=== PATIENT | female | born 1945 | race Caucasian/White ===

== ENCOUNTER 2020-02-19 11:20 | Outpatient (CLI) | payer MEDICARE | END 2020-02-19 11:21 | disposition critical access hospital (66) | LOC: EMS 11:20 | PROVIDERS: ATTEND Surgery | DX: R09.89 Other specified symptoms and signs involving the circulatory and respiratory systems (principal) | CPT/HCPCS: A0425; A0429 ==

== ENCOUNTER 2020-02-19 11:35 | Emergency (ER) | payer MEDICARE, OTHER ==
[2020-02-19] MEDS ORDERED: IPRATROPIUM/ALBUTEROL 3 ML NEB INH STA (12:25)
--- NOTE | 2020-02-19 12:27 | ED Physician Documentation ---
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 Currently without treatment. For the last 2 months she is had a productive cough with thick mucus and wheezing and shortness of breath. Today she had a mucous obstruction which her was able to release with tqzhe-cr-vtrdf resuscitation. She continues to be short of breath but not much to more over the baseline she has had over the last couple months. No calf pain, pedal edema or chest pain. No fevers. Review of Systems Constitutional: denies: Fever, Chills Eyes: denies: Loss of vision, Decreased vision Ears: denies: Loss of hearing, Ear pain Nose: denies: Rhinorrhea / runny nose, Congestion Throat: denies: Sore throat Cardiac: denies: Chest pain / pressure, Palpitations Respiratory: denies: Dyspnea, Cough PD PAST MEDICAL HISTORY - Present Medications Home Medications: Ambulatory Orders Medication Instructions Recorded Confirmed Albuterol Sulf [Ventolin Hfa 1 - 2 puffs INH Q4HR PRN #1 inhaler 02/19/20 Inhaler] Fluticasone/Salmeterol [Advair 1 each IH BID #3 blst.w.dev 02/19/20 100-50 Diskus] - Allergies Allergies/Adverse Reactions: Allergies Allergy/AdvReac Type Severity Reaction Status Date / Time peanut Allergy Anaphylaxis Verified 02/19/20 12:04 Penicillins Allergy Hives Verified 02/19/20 12:03 Tetanus Vaccines and Toxoid Allergy Rash Verified 02/19/20 12:04 PD ED PE NORMAL - Vitals Vital signs reviewed: Yes - General General: Alert and oriented X 3, No acute distress - HEENT HEENT: PERRL, EOMI - Neck Neck: Supple, no meningeal sign - Cardiac Cardiac: Other (Rapid without murmur, regular) - Respiratory Respiratory: Other (Mildly labored breathing and stridor at rest. Lungs are diminished throughout especially the right) - Abdomen Abdomen: Non tender - Back Back: No CVA TTP, No spinal TTP - Derm Derm: Normal color, Warm and dry, No rash - Extremities Extremities: No edema, No calf tenderness / cord - Neuro Neuro: Alert and oriented X 3, Normal speech Results - Vitals Vitals: Vital Signs - 24 hr 02/19/20 02/19/20 02/19/20 11:49 12:14 12:39 Temperature 36.8 C Heart Rate 91 92 86 Respiratory 17 19 12 Rate Blood Pressure 159/74 H 156/94 H O2 Saturation 100 100 Oxygen O2 Source Room air - EKG (time done) 1222 Rate: Rate (enter#) (119) Rhythm: Sinus tachycardia (w pacs) Barrett: Normal Intervals: Normal [place] QRS: Normal Ischemia: Non specific changes Computer interpretation: Agree with computer - Labs Labs: Laboratory Tests 02/19/20 02/19/20 02/19/20 12:25 12:25 12:25 WBC 5.4 RBC 4.92 Hgb 13.7 Hct 41.8 MCV 85.0 MCH 27.8 MCHC 32.8 RDW 13.5 Plt Count 175 MPV 10.0 Neut # (Auto) 3.8 Lymph # (Auto) 1.2 L Eddy # (Auto) 0.3 Eos # (Auto) 0.0 Baso # (Auto) 0.0 Absolute Nucleated RBC 0.00 Nucleated RBC % 0.0 Sodium 139 Potassium 3.9 Chloride 101 Carbon Dioxide 28 Anion Gap 10.0 BUN 12 Creatinine 0.6 Estimated GFR (MDRD) 98 Glucose 143 H Calcium 9.2 Total Bilirubin 0.9 AST 13 ALT 10 Alkaline Phosphatase 61 Troponin I High Sens 7.1 Total Protein 6.2 L Albumin 3.8 Globulin 2.4 Albumin/Globulin Ratio 1.6 Lipase 26 - Rads (name of study) 1v cxr Radiology: EMP read contemporaneously (NAD) PD MEDICAL DECISION MAKING - ED course ED course: 74-year-old woman with chronic lung disease presents after an exacerbation of same, after a DuoNeb she was feeling and looking much better, the tachycardia resolved. Departure - Departure Disposition: 01 Home, Self Care Clinical Impression: Mucus plugging of bronchi Condition: Good Record reviewed to determine appropriate education?: Yes Instructions: ED Reactive Airway Disease Follow-Up: River Moore MD [Physician No Access] - [facility] [Provider Group] [facility] [Provider Group] Prescriptions: Albuterol Sulf [Ventolin Hfa Inhaler] 1 - 2 puffs INH Q4HR PRN #1 inhaler PRN Reason: Shortness Of Air/Wheezing Fluticasone/Salmeterol [Advair 100-50 Diskus] 1 each IH BID #3 blst.w.dev Comments: On this form I put the numbers of a few doctors offices [place], Dr. 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 Return for new or worsening symptoms.
--- NOTE | 2020-02-19 12:34 | XRAY Report ---
PROCEDURE: Chest 1 View X-Ray INDICATIONS: Chest pain TECHNIQUE: One view of the chest was acquired. COMPARISON: None FINDINGS: Surgical changes and devices: None. Lungs and pleura: No pleural effusions or pneumothorax. Lungs are clear. Mediastinum: Mediastinal contours appear normal. Heart size is normal. Bones and chest wall: No suspicious bony lesions. Overlying soft tissues appear unremarkable. IMPRESSION: No acute cardiopulmonary disease process. Reviewed by: Sushma Castillo MD, PhD on 02/19/2020 12:33 PM PDT Approved by: Sushma Castillo MD, PhD on 02/19/2020 12:33 PM PDT Station ID: [id number]
[2020-02-19 12:40] LABS: BASOPHILS % (AUTO) 0.7 %; EOSINOPHILS % (AUTO) 0.7 %; HGB - HEMOGLOBIN 13.7 g/dL (12.0-16.0); LYMPHOCYTES # (AUTO) 1.2 10^3/uL (1.5-3.5); LYMPHOCYTES % (AUTO) 22.4 %; MEAN CORPUSCULAR HEMOGLOBIN 27.8 pg (27.0-31.0); MEAN CORPUSCULAR HGB CONC 32.8 g/dL (32.0-36.0); MONOCYTES # (AUTO) 0.3 10^3/uL (0.0-1.0); NEUTROPHILS # (AUTO) 3.8 10^3/uL (1.5-6.6); PLT - PLATELET COUNT 175 10^3/uL (130-450); RED BLOOD COUNT 4.92 10^6/uL (4.20-5.40); RED CELL DISTRIBUTION WIDTH 13.5 % (12.0-15.0); WHITE BLOOD COUNT 5.4 x10^3/uL (4.8-10.8)
[2020-02-19 12:56] LABS: ALBUMIN 3.8 g/dL (3.2-5.5); ALBUMIN/GLOBULIN RATIO 1.6 (1.0-2.2); BILIRUBIN,TOTAL 0.9 mg/dL (0.2-1.0); CALCIUM 9.2 mg/dL (8.5-10.3); CREATININE 0.6 mg/dL (0.4-1.0); TOTAL PROTEIN 6.2 g/dL (6.7-8.2)
[2020-02-19 13:17] VITALS: BP 143/51
== END 2020-02-19 13:23 | disposition home or self-care (01) ==
LOC: EDUNIT# → ED 11:35
DX: T17.590A Other foreign object in bronchus causing asphyxiation, initial encounter (principal); X58.XXXA Exposure to other specified factors, initial encounter; J44.1 Chronic obstructive pulmonary disease with (acute) exacerbation; I49.1 Atrial premature depolarization
CPT/HCPCS: 36415; 71045; 80053; 83690; 84484; 85025; 93005; 94664; 99284

== ENCOUNTER 2020-08-19 05:47 | Outpatient (CLI) | payer MEDICARE, MEDICAID | END 2020-08-19 05:48 | disposition critical access hospital (66) | LOC: EMS 05:47 | PROVIDERS: ATTEND Surgery | DX: R06.00 Dyspnea, unspecified (principal); R05 Cough | CPT/HCPCS: A0425; A0427 ==

== ENCOUNTER 2020-08-19 06:20 | Inpatient (IN) | payer MEDICARE, MEDICAID ==
[2020-08-19] MEDS ORDERED: ASPIRIN CHEW 81 MG TABLET PO STA (06:36)
--- NOTE | 2020-08-19 06:39 | ED Physician Documentation ---
History of Present Illness - Stated complaint Stated Complaint: SOA/ COUGH - History obtained from History obtained from: Patient, EMS - Additonal information Additional information: Patient is brought to the emergency department by EMS after waking up and feeling as though she could not breathe. She was having a coughing fit at that time she states. Patient states that she gets mucous plugs from time to time and this felt the same way. Patient states that when she was able to cough the plug up she felt better but then began to feel bad again. By this time the medics had picked her up. Medics state that when they got there, patient's oxygen saturation was 51% on room air. They immediately put her on 100% O2 and after she had a hard coughing fit and coughed up the phlegm, her sats were upper 90s to 100%. Patient states that just upon arrival in the emergency department, she coughed again and brought up what she feels is the rest of the material that was in her airways. Patient states she has a history of asthma, but has also been told by her pulmonology specialist that she has an autoimmune etiology underlying. Patient uses inhalers, but is not on any other medications. She denies diabetes, hypertension, or any cardiac issues. The patient does note that she has been having some leg swelling for the last couple of weeks. It seems to be a little worse today. No fevers or chills. No sick contacts. Prior to the episode this morning, the patient has not had any feeling of being ill. No other complaints at this time. Review of Systems Ten Systems: 10 systems reviewed and negative Constitutional: reports: Reviewed and negative Eyes: reports: Reviewed and negative Ears: reports: Reviewed and negative Nose: reports: Reviewed and negative Throat: reports: Reviewed and negative Cardiac: reports: Reviewed and negative Respiratory: reports: Dyspnea, Cough, Hemoptysis (mild blood-tinged material this morning.) GI: reports: Reviewed and negative : reports: Reviewed and negative Skin: reports: Reviewed and negative Musculoskeletal: reports: Reviewed and negative Neurologic: reports: Reviewed and negative Psychiatric: reports: Reviewed and negative Endocrine: reports: Reviewed and negative Immunocompromised: reports: Reviewed and negative PD PAST MEDICAL HISTORY - Past Medical History Respiratory: Shortness of breath, Other - Past Surgical History Past Surgical History: No - Present Medications Home Medications: Ambulatory Orders Medication Instructions Recorded Confirmed Albuterol Sulf [Ventolin Hfa 1 - 2 puffs INH Q4HR PRN #1 inhaler 02/19/20 08/19/20 Inhaler] Fluticasone/Salmeterol [Advair 1 each IH BID #3 blst.w.dev 02/19/20 08/19/20 100-50 Diskus] - Allergies Allergies/Adverse Reactions: Allergies Allergy/AdvReac Type Severity Reaction Status Date / Time peanut Allergy Anaphylaxis Verified 08/19/20 06:46 Penicillins Allergy Hives Verified 08/19/20 06:46 Tetanus Vaccines and Toxoid Allergy Rash Verified 08/19/20 06:46 - Social History Does the pt smoke?: No Smoking Status: Never smoker Does the pt drink ETOH?: No Does the pt have substance abuse?: No - Immunizations Immunizations are current?: No - POLST Patient has POLST: No PD ED PE NORMAL - Vitals Vital signs reviewed: Yes - General General: Alert and oriented X 3, No acute distress - HEENT HEENT: Atraumatic, PERRL, EOMI, Moist mucous membranes - Neck Neck: Supple, no meningeal sign - Cardiac Cardiac: RRR, No murmur, Strong equal pulses - Respiratory Respiratory: Other (Mildly labored respirations. Intermittent coughing fit. L ungs are clear to auscultation bilaterally with the exception of some mild crackles in the bases. Patient observed to produce a single, moderate amount of blood-tinged frothy sputum during coughing fit.) - Abdomen Abdomen: Soft, Non tender, Non distended - Derm Derm: Normal color, Warm and dry, No rash - Extremities Extremities: No deformity, No calf tenderness / cord, Other (1+ pitting edema bilateral lower extremities symmetrically.) - Neuro Neuro: Alert and oriented X 3, quiller operator 2-12 intact, Normal speech, Other (Grossly intact.) - Psych Psych: Normal mood, Normal affect Results - Vitals Vitals: Vital Signs - 24 hr 08/19/20 08/19/20 06:25 06:47 Temperature 36.6 C 36.6 C Heart Rate 110 H 103 H Respiratory 26 H 19 Rate Blood Pressure 182/93 H 151/85 H O2 Saturation 100 98 Oxygen O2 Source Non-rebreather mask Oxygen Flow Rate 10 - EKG (time done) 0700 Rate: Rate (enter#) (102) Rhythm: Sinus tachycardia [place]: Normal Intervals: Normal [place] QRS: Normal Ischemia: Normal ST segments Compare to prior EKG: Old EKG unavailable Computer interpretation: Agree with computer - Labs Labs: Laboratory Tests 08/19/20 08/19/20 08/19/20 06:35 06:35 06:35 WBC 10.5 RBC 4.69 Hgb 12.5 Hct 40.5 MCV 86.4 MCH 26.7 L MCHC 30.9 L RDW 14.5 Plt Count 208 MPV 10.4 Neut # (Auto) 8.5 H Lymph # (Auto) 1.3 L [place] # (Auto) 0.6 Eos # (Auto) 0.1 Baso # (Auto) 0.0 Absolute Nucleated RBC 0.00 Nucleated RBC % 0.0 PT 11.6 INR 1.0 Sodium 140 Potassium 4.2 Chloride 106 Carbon Dioxide 25 Anion Gap 9.0 BUN 20 Creatinine 0.9 Estimated GFR (MDRD) 61 L Glucose 176 H Calcium 9.2 Total Bilirubin 0.4 AST 23 ALT 15 Alkaline Phosphatase 69 Troponin I High Sens B-Natriuretic Peptide Total Protein 6.6 L Albumin 3.6 Globulin 3.0 Albumin/Globulin Ratio 1.2 Lipase 18 L 08/19/20 08/19/20 06:35 06:35 WBC RBC Hgb Hct MCV MCH MCHC RDW Plt Count MPV Neut # (Auto) Lymph # (Auto) [place] # (Auto) Eos # (Auto) Baso # (Auto) Absolute Nucleated RBC Nucleated RBC % PT INR Sodium Potassium Chloride Carbon Dioxide Anion Gap BUN Creatinine Estimated GFR (MDRD) Glucose Calcium Total Bilirubin AST ALT Alkaline Phosphatase Troponin I High Sens 49.3 H* B-Natriuretic Peptide 219 H Total Protein Albumin Globulin Albumin/Globulin Ratio Lipase - Rads (name of study) cxr Radiology: Final report received, EMP read indepedently, See rad report (ground glass opacities, consider multilobar pna vs pulmonary edema.) PD MEDICAL DECISION MAKING - ED course Complexity details: reviewed results, re-evaluated patient, considered differential, d/w patient ED course: The patient was initially kept on 100% oxygen, but this was decreased as the patient could tolerate. In the meantime, she was worked up with labs, EKG, and chest x-ray. EKG was unremarkable. Labs showed an elevated troponin at 49, and a modestly elevated BNP at 219. Her chest x-ray was read by the radiologist as showing a groundglass appearance, which could represent multilobar pneumonia versus pulmonary edema. Given the patient's history of feeling completely fine until waking up with the symptoms tonight, and the similarity to previous episodes, I felt that was more likely that the patient was experiencing pulmonary edema than an infectious process; however, a respiratory PCR was obtained and is pending at this time. I spoke with Dr. Elizondo, who did agree to admit the patient to her service. The patient has been given IV Lasix 80 mg, as well as 1 inch of nitro glycerin paste to her chest wall, and a dose of aspirin here in the emergency department. She has had a urine output so far of 550 cc. The patient on last evaluation was found to be resting comfortably in bed, with oxygen saturation of 100% on 5 L per mask. However, she was noted to become significantly dyspneic and desat with getting up to the bedside commode. Departure - Departure Disposition: 66 [facility] DC/Xfer Clinical Impression: Hypoxia Congestive heart failure Qualifiers: Heart failure type: unspecified Heart failure chronicity: acute on chronic Qualified Code(s): I50.9 - Heart failure, unspecified Condition: Serious
[2020-08-19 06:53] LABS: BASOPHILS % (AUTO) 0.4 %; EOSINOPHILS # (AUTO) 0.1 10^3/uL (0.0-0.7); HGB - HEMOGLOBIN 12.5 g/dL (12.0-16.0); LYMPHOCYTES # (AUTO) 1.3 10^3/uL (1.5-3.5); MEAN CORPUSCULAR HEMOGLOBIN 26.7 pg (27.0-31.0); MEAN CORPUSCULAR HGB CONC 30.9 g/dL (32.0-36.0); MEAN CORPUSCULAR VOLUME 86.4 fL (81.0-99.0); MEAN PLATELET VOLUME 10.4 fL (7.9-10.8); MONOCYTES # (AUTO) 0.6 10^3/uL (0.0-1.0); MONOCYTES % (AUTO) 5.2 %; NEUTROPHILS # (AUTO) 8.5 10^3/uL (1.5-6.6); PLT - PLATELET COUNT 208 10^3/uL (130-450); RED BLOOD COUNT 4.69 10^6/uL (4.20-5.40); RED CELL DISTRIBUTION WIDTH 14.5 % (12.0-15.0); WHITE BLOOD COUNT 10.5 x10^3/uL (4.8-10.8)
[2020-08-19 06:59] LABS: ALBUMIN 3.6 g/dL (3.2-5.5); ALBUMIN/GLOBULIN RATIO 1.2 (1.0-2.2); BILIRUBIN,TOTAL 0.4 mg/dL (0.2-1.0); CALCIUM 9.2 mg/dL (8.5-10.3); CREATININE 0.9 mg/dL (0.4-1.0); TOTAL PROTEIN 6.6 g/dL (6.7-8.2)
[2020-08-19 07:01] LABS: PT - PROTHROMBIN TIME 11.6 secs (9.9-12.6)
[2020-08-19] MEDS ORDERED: FUROSEMIDE 40 MG/4 ML VIAL IVP STA (07:13)
[2020-08-19] MEDS ORDERED: NITROGLYCERIN 2% PASTE TOP STA (07:14)
--- NOTE | 2020-08-19 08:14 | XRAY Report ---
PROCEDURE: Chest 1 View X-Ray INDICATIONS: Chest Pain TECHNIQUE: One view of the chest was acquired. COMPARISON: Prior chest plain films, single view, 02/19/2020, which did not show cardiomegaly or CHF. FINDINGS: Surgical changes and devices: None. Lungs and pleura: No pleural effusions or pneumothorax. Lungs are abnormal with alveolar edema, mos t prominent over the mid and lower lungs. Mediastinum: Mediastinal contours appear normal. Heart size is mildly enlarged, especially consider ing relatively large lung volumes. Bones and chest wall: No suspicious bony lesions. Overlying soft tissues appear unremarkable. IMPRESSION: Acute CHF is considered the most likely cause for the bilateral alveolar edema and mild to moderate c ardiomegaly with relatively large lung volumes. Generalized pneumonia, atypical or viral, also concei vably could be present superimposed on cardiomegaly. Reviewed by: Neel Parker MD on 08/19/2020 8:13 AM [facility] Approved by: Neel Parker MD on 08/19/2020 8:13 AM [facility] Station ID: [id number]
[2020-08-19 09:23] LABS: C. PNEUMONIAE- RESP PCR PANEL NOT DETECTED
[2020-08-19] MEDS ORDERED: ACETAMINOPHEN 325 MG TABLET PO PRN (10:24)
[2020-08-19] MEDS ORDERED: ONDANSETRON 4 MG/2 ML VIAL IVP PRN (10:24)
--- NOTE | 2020-08-19 11:26 | HISTORY & PHYSICAL EXAMINATION ---
DATE OF SERVICE: 08/19/2020 Physician: Chelsy Elizondo MD HISTORY OF PRESENT ILLNESS: This is a 75-year-old white female with a history of some autoimmune lung disease that she is not sure of the name of that gives her frequent mucus plugs, and it is treated like asthma. She is on steroid inhalers and bronchodilator inhaler. The patient says she gets mucus plugs often, which give her "coughing fits." She is not on home oxygen routinely. The patient awoke and started to get severely short of breath and started coughing, thinking she could get up a mucus plug. Since this was not working, she called an ambulance. Her oxygen saturation was 51% on room air at the scene. She continued to have coughing presenting to the emergency room and did bring up some sputum. She required a non-rebreather mask supplemental oxygen. In the ER, a chest x-ray showed pulmonary edema, thus she was given Lasix. She was witnessed to cough up frothy sputum that was blood-tinged. The patient reported that she has been getting new leg edema for about the last 1 to 2 weeks. She denied any chest pain. She thinks she has been not exposed to COVID. She denies a fever. There are no GI complaints. She measures her saturations and can tell that her heart rate is normal, usually in the 80's. She has never had a stress test, or an Echo in the past and remembers PFTs done decades ago. In the ER, her telemetry shows sinus tach at 110, frequent long runs of PSVT at 144 which break with a PVC. She denies prior problems with a fast heart rhythm. Her labs showed BNP of 219 and troponin levels of 49, then increased to 151. She is being admitted to the ICU for treating flash pulmonary edema and acute [id number] GA. 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 She gets frequent mucus plugs. She is not on home oxygen. She needed to recently switch PCPs (Chandni Walden NP has retired and the patient is about to start to see Dr. Mati Moore for PCP and he is also a Production Specialist but they have only had virtual visits thus far.) ALLERGIES 1. PEANUTS. 2. PENICILLIN. 3. TETANUS VACCINE. 4. TOXOID. MEDICATION 1. Albuterol inhaler p.r.n. 2. Advair Diskus b.i.d. FAMILY HISTORY: No inherited diseases. SOCIAL HISTORY: She lives with her . There is no smoking history. She denies alcohol abuse. REVIEW OF SYSTEMS: Comprehensive review of systems was performed and the pertinent positives are listed above in the HPI, the rest are negative. PHYSICAL EXAM GENERAL: An elderly white female who is in mild respiratory distress. VITAL SIGNS: Blood pressure 146/83, heart rate 121 in sinus tachycardia. Her saturation was 98% on 8 liters a minute nonrebreather mask, which has improved down to being on a 7 liter nonrebreather mask now with respiratory rate more comfortable at 17 to 20. HEENT: Supplemental oxygen via a mask. Her oral mucosa is moist. NECK: No JVD or carotid bruits. CHEST: Basal lowd rales, scattered wheezes, scattered rhonchi in all lung palumbo. HEART: Tachycardic. ABDOMEN: Soft, nontender. Normal bowel sounds. EXTREMITIES: Pitting edema 1+ to mid shins. NEUROLOGIC: Grossly intact. LABORATORY DATA: Normal electrolytes. Normal BUN and creatinine. Normal glucose. Normal liver tests. Troponin 49 and the next one 151. BNP 219. Lipase 18. INR normal at 1.0. CBC normal with a white count of 10.5, hemoglobin 12.5, and platelet count 208. Respiratory panel showed negative COVID. IMAGING EKG: Sinus tachycardia at a rate of 102, and lateral T-wave flattening is seen. This is new since the last EKG from 6 months ago. CHEST X-RAY: Mild cardiomegaly, pulmonary edema. IMPRESSION/DIAGNOSES 1. Flash pulmonary edema. 2. Acute [id number] myocardial infarction. 3. Mucus plugging related to her autoimmune lung disease/ acute bronchitis. 4. Asthmatic exacerbation. 5. PSVT. PLAN: The patient has received Lasix IV, nitro paste topically, and aspirin in the emergency room for treating an acute coronary syndrome. Admit the patient to the ICU on telemetry. Continue with Lasix IV b.i.d., Nitro paste topically and daily coated aspirin. Give statin high dose now and start beta blockers now for acute GA. Obtain an Echo. Start Lovenox therapeutic dose at 1 mg/kg daily. Cycle her troponins to watch for the peak. Check fasting lipid panel. Follow her electrolytes, Mg and CBC daily. Continue treatment for the underlying asthma, and we will use Xopenex for bronchodilator because of the tachycardia. Continue with supplemental oxygen to achieve a saturation of 90%, and order inhaled steroids, and we will also add Mucinex for pulmonary toilet plus chest PT for this history of severe mucus plugging. Obtain a sputum sample for culture and if high WBCs found, treat with antibiotics for bronchitis, using Zithromax orally. The patient will likely require transfer for a coronary angiogram when her pulmonary status has stabilized. DEEP VENOUS THROMBOSIS PROPHYLAXIS: Pharmacotherapy. CODE STATUS: FULL CODE. ATTESTATION: The patient is expected to be discharged or transferred to another facility within 96 hours: Yes. cc: River Moore MD TD: 08/19/2020 11:01 j MTDD
[2020-08-19] MEDS: METOPROLOL TARTRATE 25 MG TABLET PO SCH ×2 (11:40→20:47)
[2020-08-19] MEDS: ATORVASTATIN 40 MG TABLET PO SCH ×2 (11:40→20:47)
[2020-08-19] MEDS: guaiFENesin 600 MG TABLET PO SCH ×2 (11:40→20:48)
--- NOTE | 2020-08-19 14:46 | PHARMACY PROGRESS NOTE ---
- Best Possible Medication History Admit Date and Time: 08/19/20 1024 Processed by: Pharmacy Medication History completed: Yes Patient Interview: Completed Secondary Source(s): Physician records, Pharmacy records, Insurance records As the person ultimately responsible for medication therapy, providers are able to order a medication from an existing home medication list in [facility] via the "Reconcile Routine" prior to Confirmation of that medication by computer support specialist. Such practice is discouraged except when the physician, in their clinical judgment, deems that a medical need exists for a medication without regard to previous use.
[2020-08-19] MEDS: FUROSEMIDE 20 MG/2 ML VIAL IVP SCH (14:58)
[2020-08-19] MEDS: LEVALBUTEROL 1.25 MG/3 ML NEB INH PRN ×2 (15:51→20:16)
[2020-08-19] MEDS: NITROGLYCERIN 2% PASTE TOP SCH ×2 (16:20→22:02)
[2020-08-19] MEDS: SODIUM CHLORIDE FLUSH 0.9% 10 ML SYRINGE IVP SCH ×2 (18:10→22:03)
[2020-08-19] MEDS: BUDESONIDE 0.5 MG/2 ML NEB INH SCH (20:16)
[2020-08-19] MEDS: ENOXAPARIN 60 MG/0.6 ML SYRINGE SUBQ SCH (20:46)
[2020-08-19] MEDS: FAMOTIDINE 20 MG TABLET PO SCH (20:48)
[2020-08-20 05:10] LABS: BASOPHILS % (AUTO) 0.4 %; EOSINOPHILS % (AUTO) 0.3 %; HGB - HEMOGLOBIN 10.7 g/dL (12.0-16.0); LYMPHOCYTES # (AUTO) 1.7 10^3/uL (1.5-3.5); LYMPHOCYTES % (AUTO) 16.6 %; MEAN CORPUSCULAR HEMOGLOBIN 27.3 pg (27.0-31.0); MEAN CORPUSCULAR HGB CONC 32.1 g/dL (32.0-36.0); MEAN CORPUSCULAR VOLUME 84.9 fL (81.0-99.0); MEAN PLATELET VOLUME 10.2 fL (7.9-10.8); MONOCYTES # (AUTO) 0.7 10^3/uL (0.0-1.0); MONOCYTES % (AUTO) 7.1 %; NEUTROPHILS # (AUTO) 7.7 10^3/uL (1.5-6.6); NEUTROPHILS % (AUTO) 75.2 %; PLT - PLATELET COUNT 173 10^3/uL (130-450); RED BLOOD COUNT 3.92 10^6/uL (4.20-5.40); RED CELL DISTRIBUTION WIDTH 14.2 % (12.0-15.0); WHITE BLOOD COUNT 10.3 x10^3/uL (4.8-10.8)
[2020-08-20 05:25] LABS: CALCIUM 8.9 mg/dL (8.5-10.3); CREATININE 0.8 mg/dL (0.4-1.0); MAGNESIUM 1.7 mg/dL (1.7-2.8); PHOSPHORUS 3.3 mg/dL (2.5-4.6)
[2020-08-20 05:32] LABS: CHOL/HDL RATIO 2.6 (<4.4); CHOLESTEROL 202 mg/dL; HDL CHOLESTEROL 77 mg/dL; LDL CHOLESTEROL,CALCULATED 109 mg/dL; LDL/HDL RATIO 1.4 (<4.4); VLDL CHOLESTEROL 16 mg/dL
[2020-08-20] MEDS ORDERED: POTASSIUM CHLORIDE 20 MEQ TABLET PO ONE (06:00)
[2020-08-20] MEDS: SODIUM CHLORIDE FLUSH 0.9% 10 ML SYRINGE IVP PRN (06:24)
[2020-08-20] MEDS: FUROSEMIDE 20 MG/2 ML VIAL IVP SCH ×2 (06:24→14:46)
[2020-08-20] MEDS: NITROGLYCERIN 2% PASTE TOP SCH (06:25)
[2020-08-20] MEDS: ASPIRIN EC 81 MG TABLET PO SCH (08:40)
[2020-08-20] MEDS: FAMOTIDINE 20 MG TABLET PO SCH ×2 (08:40→21:11)
[2020-08-20] MEDS: guaiFENesin 600 MG TABLET PO SCH ×2 (08:40→21:11)
[2020-08-20] MEDS: SODIUM CHLORIDE FLUSH 0.9% 10 ML SYRINGE IVP SCH ×2 (08:41→17:53)
[2020-08-20] MEDS: ENOXAPARIN 60 MG/0.6 ML SYRINGE SUBQ SCH ×2 (08:41→21:12)
[2020-08-20] MEDS: LEVALBUTEROL 1.25 MG/3 ML NEB INH PRN ×2 (09:19→21:26)
[2020-08-20] MEDS: BUDESONIDE 0.5 MG/2 ML NEB INH SCH ×2 (09:19→21:26)
[2020-08-20] MEDS: METOPROLOL TARTRATE 25 MG TABLET PO SCH ×2 (09:49→21:11)
[2020-08-20] MEDS: polyethylene glycoL 3350 17 GM PACKET PO SCH (17:52)
--- NOTE | 2020-08-20 18:40 | PROVIDER PROGRESS NOTE ---
Subjective - Prog Note Date Prog Note Date: 08/20/20 Prog Note Time: 18:38 - Subjective Pt reports feeling: Improved Subjective: Overall she feels much improved than admission. But not by much. She continues to be easily short of breath with just sitting up. Talking induces stridor and asthma. She is on Lovenox, aspirin, statin and a beta-rohini for possible NSTEMI. My signout says that she may be candidate for transfer on the basis of cardiac status. The patient says that she is amenable to cardiac intervention if we feel like that is what is necessary. She feels that she is having quite a bit of mucous plugs secondary to alpha-1 antitrypsin and that is what "started everything". Current Medications - Current Medications Current Medications: Active Medications Acetaminophen (Acetaminophen 325 Mg Tablet) 650 mg PO Q4HR PRN PRN Reason: Pain or Fever > 38C (100.4F) Aspirin (Aspirin Ec 81 Mg Tablet) 81 mg PO DAILY [facility] Last Admin: 08/20/20 08:40 Dose: 81 mg Documented by: Atorvastatin Calcium (Atorvastatin 40 Mg Tablet) 80 mg PO QPM [facility] Last Admin: 08/19/20 20:47 Dose: 80 mg Documented by: Atorvastatin Calcium (Atorvastatin 40 Mg Tablet) 40 mg PO QPM [facility] Budesonide (Budesonide 0.5 Mg/2 Ml Neb) 0.5 mg INH RTBID [facility] Last Admin: 08/20/20 09:19 Dose: 0.5 mg Documented by: Enoxaparin Sodium (Enoxaparin 60 Mg/0.6 Ml Syringe) 50 mg SUBQ BID [facility] Last Admin: 08/20/20 08:41 Dose: 50 mg Documented by: Famotidine (Famotidine 20 Mg Tablet) 20 mg PO BID [facility] Last Admin: 08/20/20 08:40 Dose: 20 mg Documented by: Furosemide (Furosemide 20 Mg/2 Ml Vial) 20 mg IVP BIDDIURETIC [facility] Last Admin: 08/20/20 14:46 Dose: 20 mg Documented by: Guaifenesin (Guaifenesin 600 Mg Tablet) 600 mg PO BID [facility] Last Admin: 08/20/20 08:40 Dose: 600 mg Documented by: Levalbuterol HCl (Levalbuterol 1.25 Mg/3 Ml Neb) 1.25 mg INH Q4H PRN PRN Reason: Shortness of Air/Wheezing Last Admin: 08/20/20 09:19 Dose: 1.25 mg Documented by: Metoprolol Tartrate (Metoprolol Tartrate 25 Mg Tablet) 25 mg PO BID [facility] Last Admin: 08/20/20 09:49 Dose: Not Given Documented by: Ondansetron HCl (Ondansetron 4 Mg/2 Ml Vial) 4 mg IVP Q6HR PRN PRN Reason: Nausea / Vomiting Polyethylene Glycol (Polyethylene Glycol 3350 17 Gm Packet) 17 gm PO DAILY [facility] Last Admin: 08/20/20 17:52 Dose: 17 gm Documented by: Sodium Chloride (Sodium Chloride Flush 0.9% 10 Ml Syringe) 10 ml IVP 0100,0900,1700 [facility] Last Admin: 08/20/20 17:53 Dose: 10 ml Documented by: Sodium Chloride (Sodium Chloride Flush 0.9% 10 Ml Syringe) 10 ml IVP PRN PRN PRN Reason: NEEDED PER PROVIDER ORDERS Last Admin: 08/20/20 06:24 Dose: 10 ml Documented by: Fluticasone Propion/Salmeterol [Wixela 500-50 Inhub] 1 puffs INH BID 08/19/20 Tiotropium [place] [Spiriva Respimat] 2 puffs INH DAILY 08/19/20 Objective - Vital Signs/Intake & Output Reviewed Vital Signs: Yes Vital Signs: Vital Signs Temp Pulse Resp BP Pulse Ox 08/20/20 17:00 100 23 120/88 H 96 08/20/20 16:00 37.5 C 88 19 125/79 99 08/20/20 15:00 81 16 122/77 99 Intake & Output: Intake & Output 08/17/20 08/18/20 08/19/20 08/20/20 23:59 23:59 23:59 23:59 Intake Total 940 1430 Output Total 1000 9625 Balance -9705 -5188 - Objective General Appearance: positive: Alert, Other (5 foot 4 inch white female who weighs 102 kg. She is moderate to severely obese. Sitting upright in the bed, legs crossed, slightly leaning forward for tripod position. She is not so much wheezing as she has loud stridor.) Eyes Bilateral: positive: PERRL ENT: positive: Pharynx nml Neck: positive: No JVD. negative: Stiff neck Respiratory: positive: Wheezes, Other (Stridor. That is much worse than her wheezing. Constant slight cough. Not spasmodic.). negative: Rales, Rhonchi Cardiovascular: positive: Regular rate & rhythm, Systolic murmur. negative: Gallop/S4, Friction rub Abdomen: positive: Non-tender, No organomegaly, Nml bowel sounds, No distention Skin: positive: Warm, Dry, Pallor Extremities: positive: Non-tender, Pedal edema (Minimal) Neurologic/Psychiatric: positive: Oriented x3, CN's nml (2-12), Motor nml - Lab Results Fish Bones: 08/20/20 04:14 08/20/20 04:14 Other Labs: Lab Results x24hrs 08/20/20 08/20/20 08/20/20 Range/Units 04:14 04:14 04:14 WBC 10.3 (4.8-10.8) x10^3/uL RBC 3.92 L (4.20-5.40) 10^6/uL Hgb 10.7 L (12.0-16.0) g/dL Hct 33.3 L (37.0-47.0) % MCV 84.9 (81.0-99.0) fL MCH 27.3 (27.0-31.0) pg MCHC 32.1 (32.0-36.0) g/dL RDW 14.2 (12.0-15.0) % Plt Count 173 (130-450) 10^3/uL MPV 10.2 (7.9-10.8) fL Neut # (Auto) 7.7 H (1.5-6.6) 10^3/uL Lymph # (Auto) 1.7 (1.5-3.5) 10^3/uL [place] # (Auto) 0.7 (0.0-1.0) 10^3/uL Eos # (Auto) 0.0 (0.0-0.7) 10^3/uL Baso # (Auto) 0.0 (0.0-0.1) 10^3/uL Absolute Nucleated RBC 0.00 x10^3/uL Nucleated RBC % 0.0 /100WBC Sodium 139 (135-145) mmol/L Potassium 3.4 L (3.5-5.0) mmol/L Chloride 102 (101-111) mmol/L Carbon Dioxide 27 (21-32) mmol/L Anion Gap 10.0 (6-13) BUN 25 H (6-20) mg/dL Creatinine 0.8 (0.4-1.0) mg/dL Estimated GFR (MDRD) 70 L (>89) Glucose 124 H (70-100) mg/dL Calcium 8.9 (8.5-10.3) mg/dL Phosphorus 3.3 (2.5-4.6) mg/dL Magnesium 1.7 (1.7-2.8) mg/dL Troponin I High Sens (2.3-14.8) ng/L Triglycerides 81 ( - 149) mg/dL Cholesterol 202 H ( - 199) mg/dL LDL Cholesterol, Calc 109 ( - 129) mg/dL VLDL Cholesterol 16 mg/dL HDL Cholesterol 77 (60 - ) mg/dL LDL/HDL Ratio 1.4 (<4.4) Cholesterol/HDL Ratio 2.6 (<4.4) 08/19/20 Range/Units 20:18 WBC (4.8-10.8) x10^3/uL RBC (4.20-5.40) 10^6/uL Hgb (12.0-16.0) g/dL Hct (37.0-47.0) % MCV (81.0-99.0) fL MCH (27.0-31.0) pg MCHC (32.0-36.0) g/dL RDW (12.0-15.0) % Plt Count (130-450) 10^3/uL MPV (7.9-10.8) fL Neut # (Auto) (1.5-6.6) 10^3/uL Lymph # (Auto) (1.5-3.5) 10^3/uL [place] # (Auto) (0.0-1.0) 10^3/uL Eos # (Auto) (0.0-0.7) 10^3/uL Baso # (Auto) (0.0-0.1) 10^3/uL Absolute Nucleated RBC x10^3/uL Nucleated RBC % /100WBC Sodium (135-145) mmol/L Potassium (3.5-5.0) mmol/L Chloride (101-111) mmol/L Carbon Dioxide (21-32) mmol/L Anion Gap (6-13) BUN (6-20) mg/dL Creatinine (0.4-1.0) mg/dL Estimated GFR (MDRD) (>89) Glucose (70-100) mg/dL Calcium (8.5-10.3) mg/dL Phosphorus (2.5-4.6) mg/dL Magnesium (1.7-2.8) mg/dL Troponin I High Sens 479.9 H* (2.3-14.8) ng/L Triglycerides ( - 149) mg/dL Cholesterol ( - 199) mg/dL LDL Cholesterol, Calc ( - 129) mg/dL VLDL Cholesterol mg/dL HDL Cholesterol (60 - ) mg/dL LDL/HDL Ratio (<4.4) Cholesterol/HDL Ratio (<4.4) Assessment/Plan - Problem List (1) Acute non-ST elevation myocardial infarction (NSTEMI) Impression: I discussed the case with Dr. Patricio. She is [facility] cardiology. On the basis of the rise in troponins alone, the patient could be having demand ischemia from the PSVT, hypoxemia. However, her echocardiogram shows her to have a low ejection fraction that is new. And moderate aortic stenosis. Dr. Patricio feels that the argument could be made for her to be transferred for coronary angiogram on the basis of those 2 things alone. However, if the patient feels better, is stabilized, she might be able to be discharged. Dr. Patricio could see her in the clinic on (today is Wednesday). From there Dr. Patricio can make an arrangement for angiogram. Continue current medical management. (2) Mucus plugging of bronchi Impression: Still problematic. I think we need to work on stabilizing her from her pulmonary status before she can consider getting the angiogram. She is on budesonide, guaifenesin, leave albuterol. Plan: Try saline inhalation, chest wall vibration (3) Aortic stenosis Impression: Echocardiogram shows an overall left ventricular systolic ejection fraction is severely impaired with an EF of 25 to 30%. Global hypokinesis with distal septal akinesis. Moderate aortic stenosis with peak/mean pressure gradient of 44/29 mmHg. Aortic valve area is 1.2cm. Moderately abnormal right heart pressures. RVSP at rest 54 mmHg. In reviewing her admission history and physical, there is no note of congestive heart failure or aortic stenosis on this patient. There is appears to be a new diagnosis for her. Qualifiers: Cardiac valve disease etiology: etiology unspecified Qualified Code(s): I35.0 - Nonrheumatic aortic (valve) stenosis (4) Acute on chronic systolic heart failure Impression: Present on admission due to tachycardia, decompensation of aortic stenosis, mucous plugging. Slowly improving as her pulmonary status improves. (5) Hypokalemia Impression: On ICU replacement protocol. She will be supplemented.
[2020-08-20] MEDS ORDERED: ATORVASTATIN 40 MG TABLET PO SCH (21:00)
[2020-08-20] MEDS: ATORVASTATIN 40 MG TABLET PO SCH (21:11)
[2020-08-21] MEDS: FUROSEMIDE 20 MG/2 ML VIAL IVP SCH ×2 (06:02→14:10)
[2020-08-21] MEDS: SODIUM CHLORIDE FLUSH 0.9% 10 ML SYRINGE IVP SCH ×3 (06:05→17:37)
[2020-08-21 07:22] LABS: CALCIUM 9.2 mg/dL (8.5-10.3); CREATININE 0.7 mg/dL (0.4-1.0); MAGNESIUM 1.8 mg/dL (1.7-2.8)
[2020-08-21] MEDS: LEVALBUTEROL 1.25 MG/3 ML NEB INH PRN ×2 (07:43→21:19)
[2020-08-21] MEDS: BUDESONIDE 0.5 MG/2 ML NEB INH SCH ×2 (07:43→21:19)
[2020-08-21] MEDS: FAMOTIDINE 20 MG TABLET PO SCH ×2 (08:23→21:00)
[2020-08-21] MEDS: guaiFENesin 600 MG TABLET PO SCH ×2 (08:24→21:00)
[2020-08-21] MEDS: METOPROLOL TARTRATE 25 MG TABLET PO SCH ×2 (08:24→21:00)
[2020-08-21] MEDS: ASPIRIN EC 81 MG TABLET PO SCH (08:24)
[2020-08-21] MEDS: ENOXAPARIN 60 MG/0.6 ML SYRINGE SUBQ SCH (08:25)
[2020-08-21] MEDS: polyethylene glycoL 3350 17 GM PACKET PO SCH (08:35)
--- NOTE | 2020-08-21 10:25 | PROVIDER PROGRESS NOTE ---
Subjective - Prog Note Date Prog Note Date: 08/21/20 Prog Note Time: 10:25 - Subjective Pt reports feeling: Improved Subjective: Yesterday she was having severe, severe stridor. Sitting up in the bed and was crisscross applesauce. Today she is laying back comfortably, the respiratory distress is completely resolved. She says she was able to cough up a huge mucous plug and she is felt much better. Current Medications - Current Medications Current Medications: Active Medications Acetaminophen (Acetaminophen 325 Mg Tablet) 650 mg PO Q4HR PRN PRN Reason: Pain or Fever > 38C (100.4F) Aspirin (Aspirin Ec 81 Mg Tablet) 81 mg PO DAILY [facility] Last Admin: 08/21/20 08:24 Dose: 81 mg Documented by: Atorvastatin Calcium (Atorvastatin 40 Mg Tablet) 80 mg PO QPM [facility] Last Admin: 08/20/20 21:11 Dose: 80 mg Documented by: Atorvastatin Calcium (Atorvastatin 40 Mg Tablet) 40 mg PO QPM [facility] Last Admin: 08/20/20 21:11 Dose: 40 mg Documented by: Budesonide (Budesonide 0.5 Mg/2 Ml Neb) 0.5 mg INH RTBID [facility] Last Admin: 08/21/20 07:43 Dose: 0.5 mg Documented by: Enoxaparin Sodium (Enoxaparin 60 Mg/0.6 Ml Syringe) 50 mg SUBQ BID [facility] Last Admin: 08/21/20 08:25 Dose: 50 mg Documented by: Famotidine (Famotidine 20 Mg Tablet) 20 mg PO BID [facility] Last Admin: 08/21/20 08:23 Dose: 20 mg Documented by: Furosemide (Furosemide 20 Mg/2 Ml Vial) 20 mg IVP BIDDIURETIC [facility] Last Admin: 08/21/20 06:02 Dose: 20 mg Documented by: Guaifenesin (Guaifenesin 600 Mg Tablet) 600 mg PO BID [facility] Last Admin: 08/21/20 08:24 Dose: 600 mg Documented by: Levalbuterol HCl (Levalbuterol 1.25 Mg/3 Ml Neb) 1.25 mg INH Q4H PRN PRN Reason: Shortness of Air/Wheezing Last Admin: 08/21/20 07:43 Dose: 1.25 mg Documented by: Metoprolol Tartrate (Metoprolol Tartrate 25 Mg Tablet) 25 mg PO BID [facility] Last Admin: 08/21/20 08:24 Dose: 25 mg Documented by: Ondansetron HCl (Ondansetron 4 Mg/2 Ml Vial) 4 mg IVP Q6HR PRN PRN Reason: Nausea / Vomiting Polyethylene Glycol (Polyethylene Glycol 3350 17 Gm Packet) 17 gm PO DAILY [facility] Last Admin: 08/21/20 08:35 Dose: 17 gm Documented by: Sodium Chloride (Sodium Chloride Flush 0.9% 10 Ml Syringe) 10 ml IVP 0100,0900,1700 [facility] Last Admin: 08/21/20 06:05 Dose: 10 ml Documented by: Sodium Chloride (Sodium Chloride Flush 0.9% 10 Ml Syringe) 10 ml IVP PRN PRN PRN Reason: NEEDED PER PROVIDER ORDERS Last Admin: 08/20/20 06:24 Dose: 10 ml Documented by: Fluticasone Propion/Salmeterol [Wixela 500-50 Inhub] 1 puffs INH BID 08/19/20 Tiotropium [place] [Spiriva Respimat] 2 puffs INH DAILY 08/19/20 Objective - Vital Signs/Intake & Output Reviewed Vital Signs: Yes Vital Signs: Vital Signs x48h Temp Pulse Pulse Resp BP BP Pulse Ox 08/21/20 08:24 125/81 H 08/21/20 08:00 37.4 C 85 16 125/61 98 08/21/20 07:43 93 18 08/21/20 07:09 91 19 97/45 L 96 08/21/20 06:00 77 13 106/55 L 95 08/21/20 05:00 75 13 90/48 L 95 08/21/20 04:00 86 22 93/62 97 08/21/20 03:00 99 18 112/61 97 08/21/20 02:00 76 14 102/45 L 95 Intake & Output: Intake & Output 08/18/20 08/19/20 08/20/20 08/21/20 23:59 23:59 23:59 23:59 Intake Total 940 1430 740 Output Total 8022 5370 5783 Balance -2785 -1855 -485 - Objective General Appearance: positive: No acute distress, Alert Eyes Bilateral: positive: PERRL ENT: positive: Pharynx nml Neck: positive: No JVD. negative: Stiff neck Respiratory: positive: No respiratory distress. negative: Wheezes, Rales, Rhonchi Cardiovascular: positive: Regular rate & rhythm, Systolic murmur. negative: Gallop/S4, Friction rub Abdomen: positive: Non-tender, Nml bowel sounds, No distention. negative: Guarding, Rebound Skin: positive: Warm, Dry, Pallor Extremities: positive: Full ROM, No pedal edema Neurologic/Psychiatric: positive: Oriented x3, CN's nml (2-12), Motor nml - Lab Results Fish Bones: 08/20/20 04:14 08/21/20 07:05 Other Labs: Lab Results x24hrs 08/21/20 08/21/20 Range/Units 07:05 07:05 Sodium 138 (135-145) mmol/L Potassium 3.9 (3.5-5.0) mmol/L Chloride 102 (101-111) mmol/L Carbon Dioxide 28 (21-32) mmol/L Anion Gap 8.0 (6-13) BUN 20 (6-20) mg/dL Creatinine 0.7 (0.4-1.0) mg/dL Estimated GFR (MDRD) 82 L (>89) Glucose 114 H (70-100) mg/dL Calcium 9.2 (8.5-10.3) mg/dL Magnesium 1.8 (1.7-2.8) mg/dL Troponin I High Sens 94.2 H* (2.3-14.8) ng/L ABX Reporting Has patient been on IV antibiotics over the past 48 hours?: No Assessment/Plan - Problem List (1) Acute non-ST elevation myocardial infarction (NSTEMI) Impression: I discussed the case with Dr. Patricio on 08/20/19. I shared the conversation with the patient this morning. The patient is familiar w Dr. Patricio since Dr. Luo takes care of patient's . On the basis of the rise in troponins alone, the patient could be having demand ischemia from the PSVT, hypoxemia. However, her echocardiogram shows her to have a low ejection fraction that is new. And moderate aortic stenosis. Dr. Patricio feels that the argument could be made for her to be transferred for coronary angiogram on the basis of those 2 things alone. However, if the patient feels better, is stabilized, she might be able to be discharged. Dr. Patricio could see her in the clinic on (today is wednesday). From there Dr. Patricio can make an arrangement for angiogram. No change in that plan. Change her to [facility] status. I check troponins this morning and she is 94 this morning. She had peaked at 499. Ecotrin, Lipitor, Lovenox were started. Has received 48 hours of Lovenox (4 doses, twice daily x4 doses). She can come off Lovenox. (2) Mucus plugging of bronchi Impression: Very impressive physical exam yesterday. A complete turnaround between yesterday and today with her hypoxia, rhonchi, stridor. This was in the face of not needing chest wall vibration. Plan: Continue to move forward to see if she needs a jacket. Treat her much like if so if she were a cystic fibrosis patient. I will have respiratory therapy discussed this with her. (3) Aortic stenosis Impression: Echocardiogram shows an overall left ventricular systolic ejection fraction is severely impaired with an EF of 25 to 30%. Global hypokinesis with distal septal akinesis. Moderate aortic stenosis with peak/mean pressure gradient of 44/29 mmHg. Aortic valve area is 1.2cm. Moderately abnormal right heart pressures. RVSP at rest 54 mmHg. In reviewing her admission history and physical, there is no note of congestive heart failure or aortic stenosis on this patient. There is appears to be a new diagnosis for her. Qualifiers: Cardiac valve disease etiology: etiology unspecified Qualified Code(s): I35.0 - Nonrheumatic aortic (valve) stenosis (4) Acute on chronic systolic heart failure Impression: Present on admission due to tachycardia, decompensation of aortic stenosis, mucous plugging. Slowly improving as her pulmonary status improves. Being transferred to [facility] status. Lasix is still IV. Continue that until tomorrow and we will change her to p.o. (5) Hypokalemia resolved Impression: On ICU replacement protocol. She will be supplemented.
[2020-08-21] MEDS: SODIUM CHLORIDE FLUSH 0.9% 10 ML SYRINGE IVP PRN (14:10)
[2020-08-21] MEDS ORDERED: ATORVASTATIN 40 MG TABLET PO SCH (15:37)
[2020-08-22] MEDS: SODIUM CHLORIDE FLUSH 0.9% 10 ML SYRINGE IVP SCH (01:08)
[2020-08-22] MEDS: FUROSEMIDE 20 MG/2 ML VIAL IVP SCH (05:29)
[2020-08-22] MEDS: SODIUM CHLORIDE FLUSH 0.9% 10 ML SYRINGE IVP PRN (05:29)
[2020-08-22 06:12] LABS: CALCIUM 9.4 mg/dL (8.5-10.3); CREATININE 0.6 mg/dL (0.4-1.0)
[2020-08-22] MEDS: BUDESONIDE 0.5 MG/2 ML NEB INH SCH (07:22)
[2020-08-22] MEDS: LEVALBUTEROL 1.25 MG/3 ML NEB INH PRN (07:22)
[2020-08-22] MEDS: ASPIRIN EC 81 MG TABLET PO SCH (08:28)
[2020-08-22] MEDS: guaiFENesin 600 MG TABLET PO SCH (08:29)
[2020-08-22] MEDS: FAMOTIDINE 20 MG TABLET PO SCH (08:29)
[2020-08-22] MEDS: METOPROLOL TARTRATE 25 MG TABLET PO SCH (08:29)
[2020-08-22] MEDS: polyethylene glycoL 3350 17 GM PACKET PO SCH (08:40)
--- NOTE | 2020-08-22 08:59 | Discharge Plan ---
Discharge Plan Problem Reviewed?: Yes Disposition: Home, Self Care Condition: Fair Prescriptions: Furosemide [Lasix] 20 mg PO BID #60 tablet Atorvastatin [Lipitor] 40 mg PO QPM #30 tablet Metoprolol Tartrate [Lopressor] 25 mg PO BID #60 tablet Potassium Chloride 10 meq PO DAILY #30 tablet.er Diet: Cardiac Activity Restrictions: Activity as Tolerated Shower Restrictions: No Driving Restrictions: No Instruction Topics: Heart Valve Stenosis, Aortic Stenosis Ch, Heart Failure Meds Control, Heart Failure, Heart Failure Tracking Weight, Heart Failure Being Active, Heart Failure Diet Changes Health Concerns: You presented to our emergency room after being woken up in the 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 You were not getting better so he called an ambulance and the ambulance found you to have a saturation of 51% on room air. That is very low since normal is at least 90%. In the emergency room he was struggling to breathe, had a very fast heart rate, and had gone into congestive heart failure with water in your lungs. We also found you to have a rise in the blood test, call troponins, that are markers for heart attack. Normal is less than 14. You started a 49 then 151 and then 499. We were worried you are having a heart attack in the face of the low oxygen levels. We treated you as a heart attack and gave you aspirin, blood thinners, beta-blockers called metoprolol, and diuretics called Lasix. You were also able to cough up the big mucous plug that was making you wheeze and have airway blockage. In evaluating you, your heart has new congestive heart failure. The muscle is only pumping at 35%. And one of your valves is getting smaller and we call that aortic stenosis. Plan of Treatment: 1. You have been started on new medication. Metoprolol 25 mg twice a day slows down your heart rate and makes it works less hard in the face of a heart attack, and Lasix is a diuretic which will make the blood flow through your heart easier. Because Lasix can lower your potassium we will also go home on a potassium tablet. 2. You will be seeing a dry kiln burner today. Dr. Patricio. She is the same dry kiln burner that sees her . Because you have new aortic stenosis and new congestive heart failure, you may be a candidate for coronary angiogram. She will evaluate you and see you in clinic today. 3. Please see Dr. Moore, your primary care provider, in the next 1 to 2 weeks to make sure he knows what is going on with you. I would like him to check blood work: BNP and BMP. 4. Once the initial work-ups and treatments have been done for your heart, consider entering into cardiopulmonary rehab to improve your endurance with regards to your lungs and your heart. It is a wonderful program here at the hospital. Have Dr. Moore refer you when you are ready 5. Educate yourself about congestive heart failure. Weigh yourself daily. If your weight increases by more than 3 to 5 pounds in a day you may have to take extra Lasix. You also need to be on a low-salt heart diet. Care Goals: 1. To remain out of the hospital 2. To improve your endurance with regards to walking, exercising Assessment: Patient is been educated. She will follow through with cardiology today. No Smoking: If you smoke, Please STOP! Call for help. Follow-up with: River Moore MD [Primary Care Provider] -
[2020-08-22 10:45] VITALS: BP 123/60
--- NOTE | 2020-08-22 16:28 | DISCHARGE SUMMARY ---
"Discharge Summary Admit Date: 08/19/20 Discharge Date: 08/22/20 Discharging Provider: Ivett Farr MD Primary Care Provider: River Moore MD Code Status: Attempt Resuscitation Condition at Discharge: Fair Discharge Disposition: 01 Home, Self Care - DIAGNOSES Discharge Diagnoses with Status of Each Condition: 1. Flash pulmonary edema 2. Acute respiratory failure with hypoxia 3. Mucous plug 4. History of intrinsic asthma 5. Moderate aortic stenosis, new diagnosis 6. Acute on chronic systolic heart failure, new diagnosis 7. 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 She has frequent episodes of mucous plugs. This will cause sudden respiratory decompensation, stridor and wheezing and severe difficulty breathing. She uses steroid inhalers and bronchodilators. She does not use home oxygen. She has no previous cardiac disease history. She was awoken from sleep in the [facility] hours of admission and could not get breathing. She knew it was another mucous plug because of the sensation in her chest of congestion, and the feeling something was stuck and she could not b ring it up. Ambulance was called and her room air saturation was 51%. She required a nonrebreather mask, and was brought to the emergency room. Chest x- ray showed pulmonary edema and she was given Lasix. She coughed up frothy sputum that was blood-tinged. She also endorsed having new leg edema for 1 to 2 weeks. She denies any history of chest pain. No fever, no chills, no GI complaints. In the emergency room she had frequent runs of PSVT 844 that would then break with a PVC. BNP was 219, troponin was 49 and then second troponin was 151. She was initially admitted to the ICU as flash pulmonary edema and acute NSTEMI. - CONSULTS | PROCEDURES Procedures: 1. Chest x-ray with acute congestive heart failure. Bilateral alveolar edema and mild to moderate cardiomegaly with large lung volumes. 2. Echocardiogram had an ejection fraction of 25 to 30%. Global hypokinesis. Moderate aortic stenosis. RVSP 54 mmHg. 3. Blood cultures are negative after 2 days. 4. Sputum culture from August 19 has been read out on August 22 as gram- negative growth to be further identified. 4+ growth. Identification and sensitivities must be reviewed by primary care provider in follow-up. - HOSPITAL COURSE Hospital Course: She was placed in the ICU and required a nonrebreather. She was hypertensive throughout this. She remained tachycardic. But sinus tachycardia. Troponin started at 49.3. Then she went 251.8. She peaked at 499.3. Then 479.9. N 94.2. EKG had nonspecific ST-T wave changes. Not diagnostic of ischemia. She was treated as an NSTEMI and received Lovenox, statin, aspirin. Beta-rohini. Echocardiogram was done to further investigate and she has a new diagnosis of systolic at ejection fraction of 25 to 30%. Global hypokinesis with distal septal akinesis. Moderate aortic stenosis with a peak/mean pressure gradient of 44 mmHg / 29 mm. Aortic valve by continuity area is 1.21 cm. She had moderately abnormal right heart pressures and RVSP was 54 mmHg. She did improve with nebulizers, steroids, diuretics. When I saw the patient she was still upright on the bed, leaning forward from a crisscross applesauce position to tripod. Very light stridor. She was then able to cough up a very large mucous plug. And she felt immediately better and thereafter was able to lay down comfortably. Sputum culture was sent and she had gram-negative growth. However we wonder if this is chronic for her. She did not evidence any pneumonia by exam or by labs. I discussed the case with Dr. Patricio. She is [facility] cardiology. 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 She could have had demand ischemia from simple hypoxia and cardiac strain. However when you pseudo in the low ejection fraction, and aortic stenosis, could you have had ischemia in the face of aortic stenosis and hypoxia. Cardiology felt that the patient possibly go to the [facility] without getting a stress test. The patient was discharged in stable condition. She had new medications of metoprolol, atorvastatin, aspirin, Lasix and potassium. She will need to see her primary care provider in follow-up to make sure a BMP and a BNP is done in a week. The maintenance service technician will be seeing the patient today. After discharge. Arrangements will be made for when a cath will be done. Patient is discharged in stable condition. She has been able to lay flat, sleep comfortably. Temperature is 37 2. Pulse is 74. Blood pressure 123/60. Respirations 16 and 97% on room air. IV Lasix has been stopped and she has been transitioned over to oral Lasix. The loud rhonchorous stridor from 2 days ago is completely resolved. She has slight prolonged and exhalation but she is completely comfortable from a respiratory status. Regular rate and rhythm. Systolic ejection murmur. Abdomen is nontender and benign. Extremities have no edema. - ALLERGIES Allergies/Adverse Reactions: Allergies Allergy/AdvReac Type Severity Reaction Status Date / Time peanut Allergy Anaphylaxis Verified 08/19/20 06:46 Penicillins Allergy Hives Verified 08/19/20 06:46 Tetanus Vaccines and Toxoid Allergy Rash Verified 08/19/20 06:46 - MEDICATIONS Home Medications: Ambulatory Orders Medication Instructions Recorded Confirmed Albuterol Sulf [Ventolin Hfa 1 - 2 puffs INH Q4HR PRN #1 inhaler 02/19/20 08/19/20 Inhaler] Fluticasone Propion/Salmeterol 1 puffs INH BID 08/19/20 08/19/20 [Wixela 500-50 Inhub] Tiotropium [place] [Spiriva 2 puffs INH DAILY 08/19/20 08/19/20 Respimat] Aspirin EC [Ecotrin] 81 mg PO DAILY #0 tablet 08/22/20 Atorvastatin [Lipitor] 40 mg PO QPM #30 tablet 08/22/20 Furosemide [Lasix] 20 mg PO BID #60 tablet 08/22/20 Metoprolol Tartrate [Lopressor] 25 mg PO BID #60 tablet 08/22/20 Potassium Chloride 10 meq PO DAILY #30 tablet.er 08/22/20 - LABS Result Diagrams: 08/20/20 04:14 08/22/20 05:45"
== END 2020-08-22 11:38 | disposition home or self-care (01) | DRG 280 ==
LOC: EDUNIT# → ED 06:20 → ICU 10:24 → MS2 08-21 10:52
PROVIDERS: ADMIT Internal Medicine; ATTEND Specialist
DX: I21.4 Non-ST elevation (NSTEMI) myocardial infarction (principal); I50.23 Acute on chronic systolic (congestive) heart failure; I47.1 Supraventricular tachycardia; E88.01 Alpha-1-antitrypsin deficiency; I50.9 Heart failure, unspecified; I35.0 Nonrheumatic aortic (valve) stenosis; E87.6 Hypokalemia; E66.01 Morbid (severe) obesity due to excess calories; Z68.38 Body mass index [BMI] 38.0-38.9, adult; R09.3 Abnormal sputum; R09.02 Hypoxemia; J45.909 Unspecified asthma, uncomplicated; Z79.51 Long term (current) use of inhaled steroids; Z79.899 Other long term (current) drug therapy
CPT/HCPCS: 36415; 71045; 80048; 80053; 80061; 83690; 83735; 83880; 84100; 84484; 85025; 85610; 87040; 87070; 87077; 87150; 87205; 87631; 93005; 93306; 94640; 96374; 99285; A9270; J1650; J7626; 0202U; 83721

== ENCOUNTER 2020-10-21 19:51 | Outpatient (CLI) | payer MEDICARE, MEDICAID | END 2020-10-21 19:52 | disposition critical access hospital (66) | LOC: EMS 19:51 | PROVIDERS: ATTEND Emergency Medicine | DX: R06.00 Dyspnea, unspecified (principal) | CPT/HCPCS: A0425; A0429 ==

== ENCOUNTER 2020-10-21 20:19 | Emergency (ER) | payer MEDICARE, MEDICAID ==
[2020-10-21] MEDS ORDERED: IPRATROPIUM/ALBUTEROL 3 ML NEB INH STA (20:39)
--- NOTE | 2020-10-21 20:39 | ED Physician Documentation ---
History of Present Illness - Stated complaint Stated Complaint: SOA - Chief complaint Chief Complaint: Resp - History obtained from History obtained from: Patient - Additonal information Additional information: This is a 75-year-old woman who has a vaguely described autoimmune disease. Diagnosed with an autoimmune disease. She states that her understanding is that is very similar to cystic fibrosis, but she does not have actually cystic fibrosis. I saw her for this in February of last year and she resolved after a DuoNeb. Subsequently was admitted in August of this year for pulmonary edema. At that time she was having some arrhythmias as well. Current symptoms have been going about 2 days. She does not have a cough, just has all the stuck mucus that she feels like she cannot get up and is causing her shortness of breath. 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 - Present Medications Home Medications: Ambulatory Orders Medication Instructions Recorded Confirmed Albuterol Sulf [Ventolin Hfa 1 - 2 puffs INH Q4HR PRN #1 inhaler 02/19/20 10/21/20 Inhaler] Tiotropium [place] [Spiriva 2 puffs INH DAILY 08/19/20 10/21/20 Respimat] Aspirin EC [Ecotrin] 81 mg PO DAILY #0 tablet 08/22/20 10/21/20 Atorvastatin [Lipitor] 40 mg PO QPM #30 tablet 08/22/20 10/21/20 Furosemide [Lasix] 20 mg PO BID #60 tablet 08/22/20 10/21/20 Metoprolol Tartrate [Lopressor] 25 mg PO BID #60 tablet 08/22/20 10/21/20 Potassium Chloride 10 meq PO DAILY #30 tablet.er 08/22/20 10/21/20 Acetylcysteine 10% [Mucomyst 10%] 300 mg INH Q6H PRN #30 unit 10/21/20 Ipratropium/Albuterol [Duoneb] 3 ml INH Q6H PRN #30 unit 10/21/20 Nebulizer [Truneb Nebulizer] 1 each MC ONCE #1 each 10/21/20 - Allergies Allergies/Adverse Reactions: Allergies Allergy/AdvReac Type Severity Reaction Status Date / Time peanut Allergy Anaphylaxis Verified 10/21/20 20:39 Penicillins Allergy Hives Verified 10/21/20 20:39 Tetanus Vaccines and Toxoid Allergy Rash Verified 10/21/20 20:39 - Social History Does the pt smoke?: No Smoking Status: Never smoker Does the pt drink ETOH?: No Does the pt have substance abuse?: No - Immunizations Immunizations are current?: No - POLST Patient has POLST: No PD ED PE NORMAL - Vitals Vital signs reviewed: Yes - General General: Alert and oriented X 3, No acute distress - Neck Neck: Supple, no meningeal sign, No bony TTP - Cardiac Cardiac: RRR, No murmur - Respiratory Respiratory: Other (She is speaking in full sentences and breathing very deeply, there is audible mucus in her airway with slightly diminished breath sounds.) - Back Back: No CVA TTP, No spinal TTP - Derm Derm: Normal color, Warm and dry - Extremities Extremities: No edema, No calf tenderness / cord - Neuro Neuro: Alert and oriented X 3, Normal speech Results - Vitals Vitals: Vital Signs - 24 hr 10/21/20 10/21/20 10/21/20 20:33 20:44 20:52 Temperature 36.9 C Heart Rate 91 88 97 Respiratory 18 18 18 Rate Blood Pressure 99/57 L 130/71 O2 Saturation 100 100 10/21/20 10/21/20 10/21/20 21:21 21:26 21:36 Temperature Heart Rate 91 87 90 Respiratory 18 12 16 Rate Blood Pressure 99/57 L 121/53 L O2 Saturation 100 100 10/21/20 22:30 Temperature Heart Rate 93 Respiratory 16 Rate Blood Pressure 112/92 H O2 Saturation 100 Oxygen O2 Source Room air - EKG (time done) 2030 Rate: Rate (enter#) (80) Rhythm: NSR (w frequent PACs), LAE Ruth: Normal Intervals: Normal NE QRS: Normal Ischemia: Normal ST segments PD MEDICAL DECISION MAKING - ED course Complexity details: reviewed old records ED course: 75-year-old woman with a chronic respiratory illness feeling mostly better after a saline neb and a DuoNeb here. Her chest x-ray is clear. Departure - Departure Disposition: 01 Home, Self Care Clinical Impression: Mucus plugging of bronchi, Bronchitis Condition: Stable Record reviewed to determine appropriate education?: Yes Instructions: ED Bronchitis Asthmatic Prescriptions: Ipratropium/Albuterol [Duoneb] 3 ml INH Q6H PRN #30 unit PRN Reason: Dyspnea Acetylcysteine 10% [Mucomyst 10%] 300 mg INH Q6H PRN #30 unit PRN Reason: Dyspnea Nebulizer [Truneb Nebulizer] 1 each ONCE #1 each Comments: Drink plenty of fluids, return for new or worsening symptoms. Follow-up with your doctor Discharge Date/Time: 10/21/20 22:53
[2020-10-21] MEDS ORDERED: ACETYLCYSTEINE 10% 30 ML VIAL INH STA (21:11)
[2020-10-21] MEDS ORDERED: SODIUM CHLORIDE INHALATION 3 ML NEB INH STA (21:16)
[2020-10-21 22:53] VITALS: BP 112/92
--- NOTE | 2020-10-22 08:19 | XRAY Report ---
PROCEDURE: Chest 1 View X-Ray INDICATIONS: dyspnea TECHNIQUE: One view of the chest was acquired. COMPARISON: 08/19/2020 FINDINGS: Surgical changes and devices: None. Lungs and pleura: No pleural effusions or pneumothorax. Lungs are clear. Mediastinum: Mediastinal contours appear normal. Heart size is normal. Bones and chest wall: No suspicious bony lesions. Overlying soft tissues appear unremarkable. IMPRESSION: 1. No acute cardiopulmonary disease. 2. Interval resolution of bilateral pneumonia seen previously. 3. Concordant with preliminary report. Reviewed by: Sarai Wright MD on 10/22/2020 8:17 AM PST Approved by: Sarai Wright MD on 10/22/2020 8:17 AM PST Station ID: [id number]
== END 2020-10-21 22:53 | disposition home or self-care (01) ==
LOC: EDUNIT# → ED 20:19
DX: J98.09 Other diseases of bronchus, not elsewhere classified (principal); J40 Bronchitis, not specified as acute or chronic
CPT/HCPCS: 93005; 94640; 99283; 99284

== ENCOUNTER 2021-12-05 16:21 | Outpatient (CLI) | payer MEDICARE, MEDICAID | END 2021-12-05 16:22 | disposition short-term general hospital (02) | LOC: EMS 16:21 | DX: I48.91 Unspecified atrial fibrillation (principal); R53.1 Weakness; R63.0 Anorexia | CPT/HCPCS: A0425; A0427 ==

== ENCOUNTER 2022-02-20 08:00 | Outpatient (CLI) | payer MEDICARE, MEDICAID ==
[2022-02-20 14:54] LABS: BASOPHILS % (AUTO) 0.5 %; EOSINOPHILS % (AUTO) 0.4 %; HCT - HEMATOCRIT 36.7 % (37.0-47.0); HGB - HEMOGLOBIN 11.4 g/dL (12.0-16.0); LYMPHOCYTES # (AUTO) 1.7 10^3/uL (1.5-3.5); LYMPHOCYTES % (AUTO) 30.5 %; MEAN CORPUSCULAR HEMOGLOBIN 26.7 pg (27.0-31.0); MEAN CORPUSCULAR HGB CONC 31.1 g/dL (32.0-36.0); MEAN CORPUSCULAR VOLUME 85.9 fL (81.0-99.0); MEAN PLATELET VOLUME 9.1 fL (7.9-10.8); MONOCYTES # (AUTO) 0.6 10^3/uL (0.0-1.0); MONOCYTES % (AUTO) 10.4 %; NEUTROPHILS # (AUTO) 3.2 10^3/uL (1.5-6.6); NEUTROPHILS % (AUTO) 57.7 %; PLT - PLATELET COUNT 323 10^3/uL (130-450); RED BLOOD COUNT 4.27 10^6/uL (4.20-5.40); RED CELL DISTRIBUTION WIDTH 22.4 % (12.0-15.0); WHITE BLOOD COUNT 5.5 x10^3/uL (4.8-10.8)
[2022-02-20 15:12] LABS: T4 (THYROXINE) 5.78 ug/dL (6.09-12.23)
[2022-02-20 15:14] LABS: THYROID STIMULATING HORMONE 5.2 uIU/mL (0.34-5.60)
[2022-02-20 15:18] LABS: % IRON SATURATION 43 % (20-50); ALBUMIN 2.2 g/dL (3.2-5.5); ALBUMIN/GLOBULIN RATIO 0.6 (1.0-2.2); ALKALINE PHOSPHATASE 84 IU/L (42-121); ALT ALANINE AMINOTRANSFERASE < 10 IU/L (10-60); AST ASPARTATE AMINOTRANSFERASE 10 IU/L (10-42); BILIRUBIN,DIRECT 0.4 mg/dL (0.1-0.5); BILIRUBIN,TOTAL 1.1 mg/dL (0.2-1.0); BUN - BLOOD UREA NITROGEN 5 mg/dL (6-20); CALCIUM 8.2 mg/dL (8.5-10.3); CARBON DIOXIDE - CO2 22 mmol/L (21-32); CHLORIDE 101 mmol/L (101-111); CREATININE 0.6 mg/dL (0.4-1.0); GFR - MDRD 97 (>89); GLUCOSE 68 mg/dL (70-100); IRON 42 ug/dL (28-170); POTASSIUM 3.5 mmol/L (3.5-5.0); SLIDE REVIEW? Indicated; SODIUM 134 mmol/L (135-145); TOTAL IRON BINDING CAPACITY 98 ug/dL (250-450); TOTAL PROTEIN 5.8 g/dL (6.7-8.2); TRANSFERRIN 70 mg/dL (192-382)
[2022-02-20 15:26] LABS: FOLATE 7.65 ng/mL (5.90 - >24.8)
[2022-02-20 16:38] LABS: PLATELET ESTIMATE, MANUAL NORMAL (130-450,000) (NORMAL); PLATELET MORPHOLOGY NORMAL APPEARANCE (NORMAL); WBC MORPHOLOGY (MULTIPLE) NORMAL APPEARANCE (NORMAL)
[2022-02-20 20:49] LABS: ESTIMATED AVERAGE GLUCOSE 108 mg/dL (70-100); HEMOGLOBIN A1c% 5.4 % (4.27-6.07)
== END 2022-02-20 23:59 | disposition home or self-care (01) ==
LOC: LAB 08:00
PROVIDERS: ATTEND Internal Medicine
DX: I48.20 Chronic atrial fibrillation, unspecified (principal); I50.9 Heart failure, unspecified; Z13.1 Encounter for screening for diabetes mellitus; Z13.220 Encounter for screening for lipoid disorders
CPT/HCPCS: 36415; 80053; 82248; 82306; 82728; 82746; 83036; 83540; 83880; 84436; 84443; 84466; 85025; 85610; 85730

== ENCOUNTER 2022-03-07 13:51 | Outpatient (CLI) | payer MEDICARE, MEDICAID | END 2022-03-07 13:52 | disposition critical access hospital (66) | LOC: EMS 13:51 | DX: R11.2 Nausea with vomiting, unspecified (principal); R53.1 Weakness; R26.2 Difficulty in walking, not elsewhere classified | CPT/HCPCS: A0425; A0427 ==

== ENCOUNTER 2022-03-07 14:22 | Observation (INO) | payer MEDICARE, MEDICAID ==
--- NOTE | 2022-03-07 14:38 | ED Physician Documentation ---
PD HPI NVD - Stated complaint Stated Complaint: NAUSEA/VOMITING - History obtained from History obtained from: Patient - History of Present Illness Timing - onset: How many weeks ago (has had nausea and less appetite for 3 weeks, but with increased nausea and some vomiting, with minimal food intake the past several days. General weakness feeling the past 3 days in particular.) Timing - duration: Days (3-4 days of weakness and increased nausea, but has had some nausea for 3 weeks.) Timing - details: Gradual onset, Still present Associated symptoms: Dizzy (general weakness and lightheaded the past 3 days. She states her baseline blood pressure is only 95-110 systolic on her current medications. However she does not usually feel lightheaded with that.), Loss of appetite, Weight loss. No: Fever, Abdominal pain, Hematemesis, Melena, Dysuria (but has had frequency) Contributing factors: No: Sick contact, Bad food, Travel, Recent antibiotics Improved by: No: Eating, BM Worsened by: Eating. No: Palpation Similar symptoms before: No diagnosis (has had nausea and less appetite the past 3 weeks while in Rehab and since discharge has been worse.) Recently seen: Clinic, Admitted (She was in [facility] in November with atrial fibrillation and trouble breathing for she states 15 days than 2-3 weeks in rehab and then back home. She has scheduled heart cath at [facility] on March 13.), Other (Had been admitted to our facility in August with pulmonary edema. Echo at that time showed ejection fraction 25 to 30%. She states she had another echo and [facility] in November.) Review of Systems Constitutional: reports: Fatigue, Weight Loss. denies: Fever, Chills, Myalgias Nose: denies: Rhinorrhea / runny nose, Congestion Throat: denies: Sore throat Respiratory: denies: Cough GI: reports: Nausea, Vomiting, Constipation (little stool output correlating with less oral intake.). denies: Abdominal Pain, Diarrhea, Bloody / black stool : denies: Dysuria, Frequency Neurologic: reports: Generalized weakness (trouble getting bed to bathroom the past 3 days. No falls.). 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 - Present Medications Home Medications: Ambulatory Orders Medication Instructions Recorded Confirmed Atorvastatin [Lipitor] 40 mg PO QPM #30 tablet 08/22/20 03/07/22 Furosemide [Lasix] 20 mg PO BID #60 tablet 08/22/20 03/07/22 Metoprolol Tartrate [Lopressor] 25 mg PO BID #60 tablet 08/22/20 03/07/22 Potassium Chloride 10 meq PO DAILY #30 tablet.er 08/22/20 03/07/22 Apixaban [Eliquis] 5 mg PO BID 03/07/22 03/07/22 Cholecalciferol [Vitamin D3] 1 cap PO DAILY 03/07/22 03/07/22 Digoxin [Lanoxin] 125 mcg PO DAILY 03/07/22 03/07/22 - Allergies Allergies/Adverse Reactions: Allergies Allergy/AdvReac Type Severity Reaction Status Date / Time peanut Allergy Anaphylaxis Verified 10/21/20 20:39 Penicillins Allergy Hives Verified 10/21/20 20:39 Tetanus Vaccines and Toxoid Allergy Rash Verified 10/21/20 20:39 - Social History Does the pt smoke?: No Smoking Status: Never smoker Does the pt drink ETOH?: No Does the pt have substance abuse?: No - Immunizations Immunizations are current?: No - POLST Patient has POLST: No PD ED PE NORMAL - Vitals Vital signs reviewed: Yes - General General: Alert and oriented X 3, No acute distress, Well developed/nourished - HEENT HEENT: PERRL, EOMI, Pharynx benign. No: Moist mucous membranes - Neck Neck: Supple, no meningeal sign, No adenopathy - Cardiac Cardiac: RRR, Other (3/6 murmur left chest to back) - Respiratory Respiratory: No respiratory distress, Clear bilaterally - Abdomen Abdomen: Soft, Non tender, Non distended, No organomegaly. No: Normal bowel sounds (decreased) - Derm Derm: Normal color, Warm and dry - Extremities Extremities: No tenderness to palpate, No edema, No calf tenderness / cord - Neuro Neuro: Alert and oriented X 3, No motor deficit, Normal speech Results - Vitals Vitals: Vital Signs - 24 hr 03/07/22 14:29 Temperature 36.3 C L Heart Rate 77 Respiratory 17 Rate Blood Pressure 93/53 L O2 Saturation 96 Oxygen O2 Source Room air - EKG (time done) 14:59 Rate: Rate (enter#) (73) Rhythm: Atrial fibrillation QRS: Normal Ischemia: Non specific changes (ST depressions diffusely likely digoxin effect). No: ST elevation c/w ischemia Compare to prior EKG: Unchanged from prior EKG (similar to 10/21/20) - Labs Labs: Laboratory Tests 03/07/22 03/07/22 03/07/22 14:50 14:50 14:50 WBC 5.2 RBC 4.03 L Hgb 10.8 L Hct 33.0 L MCV 81.9 MCH 26.8 L MCHC 32.7 RDW 19.9 H Plt Count 244 MPV 8.5 Neut # (Auto) 3.5 Lymph # (Auto) 1.2 L Allen # (Auto) 0.4 Eos # (Auto) 0.0 Baso # (Auto) 0.0 Absolute Nucleated RBC 0.00 Nucleated RBC % 0.0 PT 14.5 H INR 1.3 H Sodium 133 L Potassium 2.7 L Chloride 97 L Carbon Dioxide 21 Anion Gap 15.0 H BUN 7 Creatinine 0.6 Estimated GFR (MDRD) 97 Glucose 79 Calcium 8.0 L Magnesium 1.3 L Total Bilirubin 1.9 H AST 13 ALT < 10 L Alkaline Phosphatase 55 Troponin I High Sens B-Natriuretic Peptide Total Protein 5.3 L Albumin 2.1 L Globulin 3.2 Albumin/Globulin Ratio 0.7 L Lipase 22 Last Dose Date Last Dose Time Digoxin 03/07/22 03/07/22 03/07/22 14:50 14:50 14:50 WBC RBC Hgb Hct MCV MCH MCHC RDW Plt Count MPV Neut # (Auto) Lymph # (Auto) Allen # (Auto) Eos # (Auto) Baso # (Auto) Absolute Nucleated RBC Nucleated RBC % PT INR Sodium Potassium Chloride Carbon Dioxide Anion Gap BUN Creatinine Estimated GFR (MDRD) Glucose Calcium Magnesium Total Bilirubin AST ALT Alkaline Phosphatase Troponin I High Sens < 2.3 L B-Natriuretic Peptide 327 H Total Protein Albumin Globulin Albumin/Globulin Ratio Lipase Last Dose Date UNKNOWN Last Dose Time UNKNOWN Digoxin 0.4 PD MEDICAL DECISION MAKING - ED course Complexity details: reviewed old records (Reviewed admission in August of this year to our facility. We did not receive records from [facility] regarding the November admission there. Echocardiogram in August showed ejection fraction 25 to 30% with global hypokinesis and valvular aortic disorder.), reviewed results, re-evaluated patient (The patient still with some nausea. She does have notable electrolyte deficiencies with low potassium and magnesium. This in conjunction with her known valvular heart disease and atrial fibrillation and CHF makes me concerned about overly aggressive fluid replacement or hydration.), considered differential, d/w patient ED course: I talked with the patient and shared decision was to speak with the hospitalist about potential observation criteria for electrolyte and fluid replacement and a appropriate timeframe so as to not precipitate CHF etc. We can work on nausea with antiemetic and likely PPI or H2 rohini. The hospitalist was excepting of the patient. I talked again with the patient about the goals of electrolyte and fluid replacement and that should just take into tomorrow. The patient is pleased with that in that she would like to make it back home tomorrow. Departure - Departure Disposition: ED Place in Observation Clinical Impression: Dehydration, Hypokalemia, Hypomagnesemia, Hypocalcemia Nausea & vomiting Qualifiers: Vomiting type: unspecified Qualified Code(s): R11.2 - Nausea with vomiting, unspecified Atrial fibrillation Qualifiers: Atrial fibrillation type: unspecified chronic Qualified Code(s): I48.20 - Chronic atrial fibrillation, unspecified
[2022-03-07] MEDS ORDERED: SODIUM CHLORIDE 0.9% 500 ML IV STA (14:40)
[2022-03-07] MEDS ORDERED: PANTOPRAZOLE 40 MG VIAL IVP STA (14:40)
[2022-03-07] MEDS ORDERED: PROCHLORPERAZINE 10 MG/2 ML VIAL IVP STA (14:40)
[2022-03-07 15:02] LABS: BASOPHILS % (AUTO) 0.4 %; EOSINOPHILS % (AUTO) 0.4 %; HGB - HEMOGLOBIN 10.8 g/dL (12.0-16.0); LYMPHOCYTES # (AUTO) 1.2 10^3/uL (1.5-3.5); LYMPHOCYTES % (AUTO) 22.9 %; MEAN CORPUSCULAR HEMOGLOBIN 26.8 pg (27.0-31.0); MEAN CORPUSCULAR HGB CONC 32.7 g/dL (32.0-36.0); MEAN CORPUSCULAR VOLUME 81.9 fL (81.0-99.0); MEAN PLATELET VOLUME 8.5 fL (7.9-10.8); MONOCYTES # (AUTO) 0.4 10^3/uL (0.0-1.0); MONOCYTES % (AUTO) 8.3 %; NEUTROPHILS # (AUTO) 3.5 10^3/uL (1.5-6.6); NEUTROPHILS % (AUTO) 66.8 %; PLT - PLATELET COUNT 244 10^3/uL (130-450); RED BLOOD COUNT 4.03 10^6/uL (4.20-5.40); RED CELL DISTRIBUTION WIDTH 19.9 % (12.0-15.0); WHITE BLOOD COUNT 5.2 x10^3/uL (4.8-10.8)
--- NOTE | 2022-03-07 15:15 | XRAY Report ---
PROCEDURE: Chest 1 View X-Ray INDICATIONS: chest pain TECHNIQUE: One view of the chest was acquired. COMPARISON: 10/21/2020, 08/19/2020, 02/19/2020 FINDINGS: Surgical changes and devices: None. Lungs and pleura: No pleural effusions or pneumothorax. Lungs are clear. Mediastinum: Mediastinal contours appear normal. Heart size is normal. Bones and chest wall: No suspicious bony lesions. Degenerative changes are seen, particularly involv ing the shoulders. Overlying soft tissues appear unremarkable. IMPRESSION: Portable chest study within normal limits for age. Reviewed by: Se Tomas MD on 03/07/2022 2:14 PM LOY[facility] Approved by: Se Tomas MD on 03/07/2022 2:14 PM [facility] Station ID: [id number]
[2022-03-07 15:17] LABS: ALBUMIN 2.1 g/dL (3.2-5.5); ALBUMIN/GLOBULIN RATIO 0.7 (1.0-2.2); ALKALINE PHOSPHATASE 55 IU/L (42-121); ALT ALANINE AMINOTRANSFERASE < 10 IU/L (10-60); AST ASPARTATE AMINOTRANSFERASE 13 IU/L (10-42); BILIRUBIN,TOTAL 1.9 mg/dL (0.2-1.0); BUN - BLOOD UREA NITROGEN 7 mg/dL (6-20); CARBON DIOXIDE - CO2 21 mmol/L (21-32); CHLORIDE 97 mmol/L (101-111); CREATININE 0.6 mg/dL (0.4-1.0); GFR - MDRD 97 (>89); GLUCOSE 79 mg/dL (70-100); LIPASE 22 U/L (22-51); MAGNESIUM 1.3 mg/dL (1.7-2.8); POTASSIUM 2.7 mmol/L (3.5-5.0); SODIUM 133 mmol/L (135-145); TOTAL PROTEIN 5.3 g/dL (6.7-8.2)
[2022-03-07 15:19] LABS: DIGOXIN 0.4 ng/mL; INR 1.3 (0.8-1.2); PT - PROTHROMBIN TIME 14.5 secs (9.9-12.6)
[2022-03-07] MEDS ORDERED: MAGNESIUM SULFATE 2 GRAM 2 GM/50 ML BAG IV ONE (15:33)
[2022-03-07] MEDS ORDERED: POTASSIUM CHLOR 10 MEQ/100 ML 10 MEQ/100 ML BAG IV ONE (15:33)
[2022-03-07] MEDS ORDERED: MAG HYDROX/AL HYDROX/SIMETH 30 ML UDC PO STA (15:37)
[2022-03-07] MEDS ORDERED: ACETAMINOPHEN 325 MG TABLET PO PRN (16:28)
[2022-03-07] MEDS ORDERED: ONDANSETRON ODT 4 MG TABLET TL PRN (16:28)
[2022-03-07] MEDS ORDERED: ONDANSETRON 4 MG/2 ML VIAL IVP PRN (16:28)
[2022-03-07] MEDS ORDERED: oxyCODONE 5 MG TABLET PO PRN (16:28)
[2022-03-07] MEDS ORDERED: PROCHLORPERAZINE 10 MG/2 ML VIAL IVP PRN (16:28)
[2022-03-07 16:56] LABS: GLUCOSE, URINE (UA) NEGATIVE (NEGATIVE); KETONES,URINE (UA) 40 mg/dL (NEGATIVE); LEUKOCYTE ESTERASE, URINE LARGE (NEGATIVE); NITRITE,URINE NEGATIVE (NEGATIVE); OCCULT BLOOD,URINE TRACE-INTA (NEGATIVE); PH,URINE 5.5 PH (5.0-7.5); PROTEIN,URINE NEGATIVE (NEGATIVE); UROBILINOGEN,URINE 4 E.U./dL (NORMAL)
[2022-03-07] MEDS ORDERED: SODIUM CHLORIDE 0.9% 1,000 ML IV SCH (17:00)
[2022-03-07 17:06] LABS: CLARITY,URINE HAZY (CLEAR)
[2022-03-07 17:10] LABS: BILIRUBIN,URINE NEGATIVE (NEGATIVE); ICTOTEST,URINE NEGATIVE
--- NOTE | 2022-03-07 17:10 | HISTORY & PHYSICAL EXAMINATION ---
Chief Complaint - Chief Complaint Chief Complaint: Weakness and Nausea History of Present Illness - Admitted From Admitted From:: Emergency Department - History Obtained From Records Reviewed: Previous Admissions History obtained from: Patient - History of Present Illness HPI Comment/Other: 76 y.o. woman 5ft 3in 93.5kg admitted for persistent nausea and weakness over the past 3 weeks. She reports no appetitie starting at her hospitalization in October in [facility]. Since then she has had persistent dry mouth and no interest in food. After discharge she was able to eat about 500 caleries per day until about 3 weeks ago when she became persistently nauseated and has only been able to tolerate clear liquids and has been forcing herself to keep her pills down. 2 weeks ago she starting having vomiting and dry heaves associated with the nausea. No abdominal pain or cramping. No fevers, chills or muscle aches. She has been having minimal bowel movements, but she attributes this to poor oral intake rather than true constipation. Eating makes her nausea worse, but nothing seems to make it better. She has had a significant associated weight l oss. On admission to [facility] in October she reports weighing about 260 lbs and her weight today was 190 lbs, some of which is attributable to diuresis for her CHF. No night sweats, bloody stools, or dark colored stools. She has never had a colonoscopy, but she did do fecal occult blood test that was negative. Not up to date on other cancer screenings like pap smear or mammograms. On exam abdomen is non-tender, normal bowel tones, no massess appreciated. 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 Chronic cough associated.) Endocrine/Autoimmune: reports: Type 2 diabetes (was diagnosed with Type 2 DM at last hospital stay in [facility] due to increased A1C, but A1C has since declined and is no longer on treatment.) ORDER CHECKER: reports: Miscarriage(s), Other () HEENT: reports: Other (visual hallucinations with [facility] staf for the first few days) Musculoskeletal: reports: None, Other (associated with her autoimmune disease is joint pain, but not experiencing any right now.) Derm: reports: Other (mild skin excoriation under her pannus and between her labia) MRSA Hx?: No - Past Surgical History HEENT: reports: Tonsil/Adenoidectomy - Family & Social History Family History Comment/Other: Mother and father both in their 70s of heart disease. of her 11 children 1 daughter has an unknown autoimmune disorder. Mother and maternal grandmother with DM type 2. Father had skin cancer, no other family cancer history. Living arrangement: At home Living Situation: With spouse/s.o. - Substance History Use: Uses substance without health or social issues: NONE (Never smoker or drinker. denies cannabis or other illicit substance.) - POLST Patient has POLST: No POLST Status: Full Code Meds/Allgy - Home Medications Home Medications: Ambulatory Orders Medication Instructions Recorded Confirmed Atorvastatin [Lipitor] 40 mg PO QPM #30 tablet 08/22/20 03/07/22 Furosemide [Lasix] 20 mg PO BID #60 tablet 08/22/20 03/07/22 Metoprolol Tartrate [Lopressor] 25 mg PO BID #60 tablet 08/22/20 03/07/22 Potassium Chloride 10 meq PO DAILY #30 tablet.er 08/22/20 03/07/22 Apixaban [Eliquis] 5 mg PO BID 03/07/22 03/07/22 Cholecalciferol [Vitamin D3] 1 cap PO DAILY 03/07/22 03/07/22 Digoxin [Lanoxin] 125 mcg PO DAILY 03/07/22 03/07/22 - Allergies Allergies/Adverse Reactions: Allergies Allergy/AdvReac Type Severity Reaction Status Date / Time peanut Allergy Anaphylaxis Verified 10/21/20 20:39 Penicillins Allergy Hives Verified 10/21/20 20:39 Tetanus Vaccines and Toxoid Allergy Rash Verified 10/21/20 20:39 Review of Systems - Constitutional Constitutional: reports: Fatigue, Weakness, Weight loss. denies: Fever, Chills, Malaise - Ears, Nose & Throat Ears, Nose & Throat: denies: Nasal discharge, Nasal congestion, Sore throat - Respiratory Respiratory: denies: Cough - Gastrointestinal Gastrointestinal: reports: Constipation (correlating with decreased intake), Nausea, Vomiting. denies: Abdominal pain, Black stools, Bloody stools - Genitourinary Genitourinary: reports: Frequency. denies: Dysuria - Neurological Neurological: reports: General weakness. denies: Numbness, Abnormal gait - All Other Systems All Other Systems: reports: Reviewed and negative Prior Level of Functionality: admitted in August of last year for an acute OR. On that visit had new diagnosis aortic stenosis and HF. discharged to SNF for PT. Decline in functional status since then. Exam - Vital Signs Reviewed Vital Signs: Yes Vital Signs: Vital Signs x48h Temp Pulse Resp BP Pulse Ox 03/07/22 16:43 36.1 C L 67 16 90/51 L 100 03/07/22 16:33 76 20 90/51 L 97 03/07/22 14:29 36.3 C L 77 17 93/53 L 96 - Physical Exam General Appearance: positive: No acute distress (lying in bed. calm. coope rative. no complaints of pain. Nausea currently controlled.) Eyes Bilateral: positive: Normal inspection, PERRL ENT: positive: Dry mucous membranes, Other (Dry tongue.) Neck: positive: Nml inspection Respiratory: positive: Breath sounds nml, Other (chronic cough. clear secretions.) Cardiovascular: positive: Irregularly irregular, Systolic murmur Peripheral Pulses: positive: 2+ Abdomen: positive: Non-tender, Nml bowel sounds Back: positive: Nml inspection Skin: positive: Other (skin breakdown under panus and between labia.) Extremities: positive: Non-tender, Other (left arm weaker than right, chronic.) Neurologic/Psychiatric: positive: Oriented x3 Conclusion/Plan - Problem List (1) Dehydration Conclusion/Plan: Decreased PO intake since october worse over the last 3 weeks due to persistent nausea and vomiting. Received 500 mL NS in the ED. Will get additional IV fluids with K replacement. (2) Protein-calorie malnutrition Conclusion/Plan: Decreased appetite since October. Food just hasn't been appealing. She was able to force herself to eat about 500 calories per day until 3 weeks ago when the persistent nausea started and she was only able to tolerated a clear liquid diet. Albumin 2.1. Will encourage patient to add calorie replacement on discharge like ensure or boost to try and increase her caloric intake. (3) Weakness generalized Conclusion/Plan: Three weeks ago she was able to walk 200 ft 10 times per day. Today she feels like she may be able to walk 100 ft once. She gets fatigued and short of breath even after short exertions. Will replete fluids and see if this helps her functional status, but her penitentiary malnutrition will need to be addressed outpatient and she may require additional physical therapy to rebuild her strength. (4) Nausea & vomiting Conclusion/Plan: Nausea has been persistent over the last 3 weeks. Digoxin level checked .4. PRN antiemetics ordered. On evaluation patient says she doesn't feel nauseated at this time. Qualifiers: Vomiting type: unspecified Qualified Code(s): R11.2 - Nausea with vomiting, unspecified (5) Hypokalemia Conclusion/Plan: due to decreased intake. 10 meq given in the ED. Additional 40 meq to be given while here on observational status. Will recheck BMP in the AM. (6) Hypomagnesemia Conclusion/Plan: 2G of magnesium given in the ED. Will check BMP in AM. (7) Dry mouth Conclusion/Plan: Dry mouth is new with the loss of appetite from october. Known as to what is ca using it. Encouraged biotene as a saliva replacement to help make food more palatable. (8) Atrial fibrillation Conclusion/Plan: Chronic. On Metoprolol and Digoxin for rate control. Anticoagulated with Eliquis. Continue home meds. HR 74 and afib on ED EKG. Qualifiers: Atrial fibrillation type: unspecified chronic Qualified Code(s): I48.20 - Chronic atrial fibrillation, unspecified; I48.2 - Chronic atrial fibrillation (9) Aortic stenosis Conclusion/Plan: Seen by outpatient assistant toddler teacher. Is supposed to get a heart cath later this week. (10) Heart failure Conclusion/Plan: EF 39% on october hospitalization at [facility]. Seen by Dr. Rae (assistant toddler teacher). Continue home lasix, atorvostatin, metoprolol, and digoxin. - Lab Results Lab results reviewed: Yes Anibal Bones: 03/07/22 14:50 03/07/22 14:50 - EKG Results EKG Interpreted Independently: Yes EKG Findings: Afib Core Measures - Anticipated LOS I expect patient to be DC'd or transferred within 96 hours.: Yes - DVT/VTE - Prophylaxis VTE/DVT Device ordered at admit?: Yes
[2022-03-07 17:13] LABS: BACTERIA,URINE Many /HPF (None Seen); RBC,URINE 0-5 /HPF (0-5); SQUAMOUS EPITHELIAL CELL,UR FEW Squamous (<= Few); WBC,URINE >25 /HPF (0-5)
[2022-03-07] MEDS: SODIUM CHLORIDE FLUSH 0.9% 10 ML SYRINGE IVP PRN (18:53)
[2022-03-07] MEDS: POTASSIUM CHLOR 10 MEQ/100 ML 10 MEQ/100 ML BAG IV SCH ×4 (18:53→22:09)
[2022-03-07] MEDS: SODIUM CHLORIDE FLUSH 0.9% 10 ML SYRINGE IVP SCH (18:59)
[2022-03-07] MEDS: METOPROLOL TARTRATE 25 MG TABLET PO SCH (20:59)
[2022-03-07] MEDS ORDERED: SULFAMETH/TRIMETH DS 800/160 MG TABLET PO SCH (21:00)
[2022-03-07] MEDS: APIXABAN 5 MG TABLET PO SCH (21:02)
[2022-03-07] MEDS: FUROSEMIDE 20 MG TABLET PO SCH (21:02)
[2022-03-07] MEDS: MIN OIL/DIMETHICON/COCONUT OIL 92 GM TUBE TOP PRN (21:04)
[2022-03-08] MEDS: MIN OIL/DIMETHICON/COCONUT OIL 92 GM TUBE TOP PRN
[2022-03-08] MEDS: SODIUM CHLORIDE FLUSH 0.9% 10 ML SYRINGE IVP SCH ×2 (00:16→08:12)
[2022-03-08 05:12] LABS: BASOPHILS % (AUTO) 0.6 %; EOSINOPHILS % (AUTO) 0.6 %; HCT - HEMATOCRIT 33.6 % (37.0-47.0); HGB - HEMOGLOBIN 11.1 g/dL (12.0-16.0); LYMPHOCYTES # (AUTO) 1.8 10^3/uL (1.5-3.5); LYMPHOCYTES % (AUTO) 32.9 %; MEAN CORPUSCULAR HEMOGLOBIN 27.2 pg (27.0-31.0); MEAN CORPUSCULAR VOLUME 82.4 fL (81.0-99.0); MONOCYTES # (AUTO) 0.4 10^3/uL (0.0-1.0); NEUTROPHILS # (AUTO) 3.1 10^3/uL (1.5-6.6); NEUTROPHILS % (AUTO) 57.2 %; PLT - PLATELET COUNT 283 10^3/uL (130-450); RED BLOOD COUNT 4.08 10^6/uL (4.20-5.40); RED CELL DISTRIBUTION WIDTH 19.9 % (12.0-15.0); WHITE BLOOD COUNT 5.4 x10^3/uL (4.8-10.8)
[2022-03-08 05:26] LABS: CREATININE 0.6 mg/dL (0.4-1.0)
[2022-03-08 05:45] LABS: CALCIUM 8.4 mg/dL (8.5-10.3); POTASSIUM 3.1 mmol/L (3.5-5.0)
[2022-03-08] MEDS ORDERED: POTASSIUM CHLORIDE 20 MEQ TABLET PO ONE (07:12)
[2022-03-08] MEDS: POTASSIUM CHLOR 10 MEQ/100 ML 10 MEQ/100 ML BAG IV SCH ×4 (08:11→11:37)
[2022-03-08] MEDS: APIXABAN 5 MG TABLET PO SCH (08:11)
[2022-03-08] MEDS: FUROSEMIDE 20 MG TABLET PO SCH (08:11)
[2022-03-08] MEDS: METOPROLOL TARTRATE 25 MG TABLET PO SCH (08:17)
[2022-03-08] MEDS ORDERED: polyethylene glycoL 3350 17 GM PACKET PO SCH (09:00)
[2022-03-08] MEDS ORDERED: ENOXAPARIN 40 MG/0.4 ML SYRINGE SUBQ SCH (09:00)
[2022-03-08] MEDS ORDERED: DIGOXIN 125 MCG TABLET PO SCH (09:00)
[2022-03-08 13:57] LABS: ESTIMATED AVERAGE GLUCOSE 108 mg/dL (70-100); HEMOGLOBIN A1c% 5.4 % (4.27-6.07)
--- NOTE | 2022-03-08 14:38 | PHARMACY PROGRESS NOTE ---
- Best Possible Medication History Admit Date and Time: 03/07/22 1628 Processed by: Nursing Medication History completed: Yes Patient Interview: Completed As the person ultimately responsible for medication therapy, providers are able to order a medication from an existing home medication list in [facility] via the "Reconcile Routine" prior to Confirmation of that medication by litigation support analyst. Such practice is discouraged except when the physician, in their clinical judg ment, deems that a medical need exists for a medication without regard to previous use.
--- NOTE | 2022-03-08 15:13 | Discharge Plan ---
Discharge Plan Problem Reviewed?: Yes Disposition: Home, Self Care Condition: Poor Prescriptions: Ondansetron Odt [Zofran Odt] 4 mg TL Q6HR PRN #30 tablet PRN Reason: Nausea / Vomiting Diet: Low Sodium Activity Restrictions: Activity as Tolerated Shower Restrictions: No Driving Restrictions: No Health Concerns: You have been having unexpected lack of appetite with nausea and fatigue since October of this year. So far no one is ever been able to figure out why this is happening. 3 weeks ago he began having vomiting with this. You have occasional diarrhea. While being at [facility] in October of this year you were given a new diabetic drug which can cause quite a bit of side effects but you have not been taking it since you are [facility]. In looking at your medication list, Lanoxin can give you nausea and vomiting but we checked your levels when you came to our emergency room and your levels were acceptable. Your lack of appetite has resulted in severe protein calorie malnutrition. Your protein levels are very low in your body. Your potassium was low to 2.7 in the emergency room and normal is at least 3.5. Magnesium was low as well. You seem to have chronic anemia since August of this last year. Normal amount of blood is about 12 g. You vary between 10.7 g and up to 11.4 g. In the emergency room your lips are very dry and so is the lining of your mouth and tongue. You state that is a very new complaint in the last few weeks. Your blood pressure was a little low at 99/48. While you are in the hospital you got as low as 86/46. Sodium is low at 1 33-1 34. We gave you intravenous fluids, and lots of potassium supplementation. At the time of discharge her potassium was 3.4. Plan of Treatment: 1. Please follow-up with your primary care provider Dr. Moore. You have what we call "the dwindles" and its getting worse for you. While you are sick enough to realize that you needed help, we cannot complete your work-up while you are in the hospital. I would ask him to do adrenal panels, and autoimmune panel, thyroid, and possible GI work-up such as an EGD, gastric emptying study, etc. He may need to do further work-up to make sure that you did not have hidden cause such as cancer. 2. Please follow-up with your fruit dryer with regards to your diagnosis of aortic stenosis and your further therapy. Care Goals: To hopefully find out the reason why your sodium, potassium, magnesium is low. While your blood pressure is low and why you are so tired, nauseated and without any appetite. You have gone from approximately 240 pounds to 190 pounds in the last few months. Assessment: Patient states that she has a telemedicine appointment with him in the next few days. She will follow through with telemedicine appointment and I have asked her to let Dr. Moore know to read my discharge summary No Smoking: If you smoke, Please STOP! Call for help. Follow-up with: River Moore MD [Primary Care Provider] -
[2022-03-08 15:44] VITALS: BP 106/46
[2022-03-08] MEDS: SODIUM CHLORIDE FLUSH 0.9% 10 ML SYRINGE IVP PRN (15:48)
--- NOTE | 2022-03-08 17:53 | DISCHARGE SUMMARY ---
"Discharge Summary Admit Date: 03/07/22 Discharge Date: 03/08/22 Discharging Provider: Ivett Farr MD Primary Care Provider: Blake Moore MD Code Status: Attempt Resuscitation Condition at Discharge: Poor Discharge Disposition: 01 Home, Self Care - DIAGNOSES Discharge Diagnoses with Status of Each Condition: 1. Dehydration 2. Protein calorie malnutrition, severe 3. Hypokalemia 4. Nausea and vomiting 5. Hypomagnesemia 6. Dry mouth 7. Chronic atrial fibrillation 8. Hyponatremia 9. Hypotension 10. Failure to thrive - HPI History of Present Illness: 76 y.o. woman 5ft 3in 93.5kg admitted for persistent nausea and weakness over the past 3 weeks. She reports no appetitie starting at her hospitalization in October in [facility]. Since then she has had persistent dry mouth and no interest in food. After discharge she was able to eat about 500 caleries per day until about 3 weeks ago when she became persistently nauseated and has only been able to tolerate clear liquids and has been forcing herself to keep her pills down. 2 weeks ago she starting having vomiting and dry heaves associated with t he nausea. No abdominal pain or cramping. No fevers, chills or muscle aches. She has been having minimal bowel movements, but she attributes this to poor oral intake rather than true constipation. Eating makes her nausea worse, but nothing seems to make it better. She has had a significant associated weight loss. On admission to [facility] in October she reports weighing about 260 lbs and her weight today was 190 lbs, some of which is attributable to diuresis for her CHF. No night sweats, bloody stools, or dark colored stools. She has never had a colonoscopy, but she did do fecal occult blood test that was negative. Not up to date on other cancer screenings like pap smear or mammograms. On exam abdomen is non-tender, normal bowel tones, no massess appreciated. 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 Chronic cough associated.) Endocrine/Autoimmune: reports: Type 2 diabetes (was diagnosed with Type 2 DM at last hospital stay in 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 No acute cardiopulmonary abnormalities. Urine culture with Klebsiella pneumonia that came present 2 days after discharge.Chest x-ray that is portable. No acute cardiopulmonary abn ormalities.I did speak to the patient to let her know that urine culture was positive. She had already seen her primary care provider and received Bactrim for that. . - HOSPITAL COURSE Hospital Course: This suzanne, unfortunate female has been having multiple symptomatology since October of this year. The etiology is not really clear. At this critical access hospital were really not able to institute quite multispecialty work-up. This woman could have anything from adrenal insufficiency to pituitary problems to gastric problems. I would asked that she be carefully interviewed in the outpatient setting and work-up be instituted. While here she was profoundly fatigued. She was very pleasant, cooperative, alert. But said that all she could do was to sleep all day long. She did that while here. Her potassium was supplemented until it was normal. She was hydrated. She had very poor appetite. I have explained to her my thought process. I have asked her to follow-up with her primary care provider, Dr. Moore. She will also get cardiology follow-up for her aortic stenosis in the next few weeks. I explained to her that if her condition continues to be this poor with regards to nutrition and strength, she would be at increased risk with what ever cardiology procedure was offered to her. At discharge temperature was 36.3. Heart rate 88. Blood pressure was 106/46. She states that that is what she usually runs. Respirations were 16. 100% on room air. She is 5 feet 3 inches tall, 93.5 kg. Pale, alert, white female who looks prone family fatigue. She is not cushingoid. There is no skin discoloration of adrenal disease. Neck is supple. No large thyroid. Lungs have diminished breath sounds in a patient who has no increased respiratory effort with speaking or walking. Regular rate and rhythm. And abdomen is soft, nontender with hypoactive bowel sounds. Feet that have no edema. Alert, oriented, normal speech patterns. - ALLERGIES Allergies/Adverse Reactions: Allergies Allergy/AdvReac Type Severity Reaction Status Date / Time peanut Allergy Anaphylaxis Verified 10/21/20 20:39 Penicillins Allergy Hives Verified 10/21/20 20:39 Tetanus Vaccines and Toxoid Allergy Rash Verified 10/21/20 20:39 - MEDICATIONS Home Medications: Ambulatory Orders Medication Instructions Recorded Confirmed Atorvastatin [Lipitor] 40 mg PO QPM #30 tablet 08/22/20 03/07/22 Furosemide [Lasix] 20 mg PO BID #60 tablet 08/22/20 03/07/22 Metoprolol Tartrate [Lopressor] 25 mg PO BID #60 tablet 08/22/20 03/07/22 Potassium Chloride 10 meq PO DAILY #30 tablet.er 08/22/20 03/07/22 Apixaban [Eliquis] 5 mg PO BID 03/07/22 03/07/22 Cholecalciferol [Vitamin D3] 1 cap PO DAILY 03/07/22 03/07/22 Digoxin [Lanoxin] 125 mcg PO DAILY 03/07/22 03/07/22 Ondansetron Odt [Zofran Odt] 4 mg TL Q6HR PRN #30 tablet 03/08/22 - LABS Result Diagrams: 03/08/22 04:28 03/08/22 13:56"
== END 2022-03-08 17:12 | disposition home or self-care (01) ==
LOC: EDUNIT# → ED 14:22 → MS2 16:28
PROVIDERS: ADMIT Specialist; ATTEND Specialist
DX: E86.0 Dehydration (principal); E43 Unspecified severe protein-calorie malnutrition; Z68.34 Body mass index [BMI] 34.0-34.9, adult; E87.6 Hypokalemia; E83.42 Hypomagnesemia; R11.2 Nausea with vomiting, unspecified; I48.20 Chronic atrial fibrillation, unspecified; E87.1 Hypo-osmolality and hyponatremia; I95.9 Hypotension, unspecified; R62.7 Adult failure to thrive; I11.0 Hypertensive heart disease with heart failure; I50.9 Heart failure, unspecified; E11.9 Type 2 diabetes mellitus without complications; I25.2 Old myocardial infarction; I35.0 Nonrheumatic aortic (valve) stenosis; R82.71 Bacteriuria; Z20.822 Contact with and (suspected) exposure to COVID-19
CPT/HCPCS: 36415; 71045; 80048; 80053; 80162; 81001; 83036; 83690; 83735; 83880; 84132; 84484; 85025; 85610; 87077; 87086; 87181; 87635; 93005; 96361; 96365; 96366; 96368; 96372; 96375; 96376; 99284; 99285; A6250; A9270; G0378; J1650; 81003

== ENCOUNTER 2022-03-12 17:04 | Outpatient (CLI) | payer MEDICARE, MEDICAID | END 2022-03-12 17:05 | disposition critical access hospital (66) | LOC: EMS 17:04 | DX: T17.298A Other foreign object in pharynx causing other injury, initial encounter (principal); R11.10 Vomiting, unspecified; X58.XXXA Exposure to other specified factors, initial encounter | CPT/HCPCS: A0425; A0427 ==

== ENCOUNTER 2022-03-12 17:39 | Emergency (ER) | payer MEDICARE, MEDICAID ==
[2022-03-12] MEDS ORDERED: SODIUM CHLORIDE 0.9% 1,000 ML IV STA (17:51)
[2022-03-12] MEDS ORDERED: ONDANSETRON 4 MG/2 ML VIAL IVP STA (17:51)
[2022-03-12 18:05] LABS: BASOPHILS % (AUTO) 0.6 %; EOSINOPHILS % (AUTO) 0.4 %; HCT - HEMATOCRIT 32.1 % (37.0-47.0); HGB - HEMOGLOBIN 10.9 g/dL (12.0-16.0); LYMPHOCYTES # (AUTO) 1.4 10^3/uL (1.5-3.5); LYMPHOCYTES % (AUTO) 28.4 %; MEAN CORPUSCULAR HEMOGLOBIN 27.5 pg (27.0-31.0); MEAN CORPUSCULAR VOLUME 80.9 fL (81.0-99.0); MEAN PLATELET VOLUME 8.4 fL (7.9-10.8); MONOCYTES # (AUTO) 0.3 10^3/uL (0.0-1.0); MONOCYTES % (AUTO) 5.3 %; NEUTROPHILS # (AUTO) 3.2 10^3/uL (1.5-6.6); NEUTROPHILS % (AUTO) 64.3 %; PLT - PLATELET COUNT 224 10^3/uL (130-450); RED BLOOD COUNT 3.97 10^6/uL (4.20-5.40); RED CELL DISTRIBUTION WIDTH 19.8 % (12.0-15.0); WHITE BLOOD COUNT 4.9 x10^3/uL (4.8-10.8)
--- NOTE | 2022-03-12 18:08 | ED Physician Documentation ---
History of Present Illness - Stated complaint Stated Complaint: GEN WEAKNESS - Chief complaint Chief Complaint: Abd Pain - Additonal information Additional information: 76-year-old female return to the emergency department for reported uncontrolled nausea and vomiting now for 3 weeks. She had a brief hospitalization on the and of this month for profound weakness dehydration and hypokalemia in the setting of vomiting. She reports that since discharge home she has kept nothing down. She also feels that she has a pill lodged in her esophagus though with time it seems to be moving downward. She is reporting generalized but not non focal abdominal pain. There have been no fevers. Denies melena or hematochezia. Past medical history is most significant for hypertension, atrial fibrillation anticoagulated on Eliquis. She also has a history of congestive heart failure. Last ejection fraction measured at 25 to 30%. Known aortic stenosis described as moderate. 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), Other () HEENT: Other (visual hallucinations with [facility] for the first few days) Musculoskeletal: None, Other (associated with her autoimmune disease is joint pain, but not experiencing any right now.) Derm: Other (mild skin excoriation under her pannus and between her labia) - Past Surgical History Past Surgical History: Yes /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 SHIPPING 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: Hysterectomy HEENT: Tonsil/Adenoidectomy - Present Medications Home Medications: Ambulatory Orders Medication Instructions Recorded Confirmed Atorvastatin [Lipitor] 40 mg PO QPM #30 tablet 08/22/20 03/07/22 Furosemide [Lasix] 20 mg PO BID #60 tablet 08/22/20 03/07/22 Metoprolol Tartrate [Lopressor] 25 mg PO BID #60 tablet 08/22/20 03/07/22 Potassium Chloride 10 meq PO DAILY #30 tablet.er 08/22/20 03/07/22 Apixaban [Eliquis] 5 mg PO BID 03/07/22 03/07/22 Cholecalciferol [Vitamin D3] 1 cap PO DAILY 03/07/22 03/07/22 Digoxin [Lanoxin] 125 mcg PO DAILY 03/07/22 03/07/22 Ondansetron Odt [Zofran Odt] 4 mg TL Q6HR PRN #30 tablet 03/08/22 - Allergies Allergies/Adverse Reactions: Allergies Allergy/AdvReac Type Severity Reaction Status Date / Time peanut Allergy Anaphylaxis Verified 03/12/22 17:47 Penicillins Allergy Hives Verified 03/12/22 17:47 Tetanus Vaccines and Toxoid Allergy Rash Verified 03/12/22 17:47 - Social History Does the pt smoke?: No Smoking Status: Never smoker Does the pt drink ETOH?: No Does the pt have substance abuse?: No - Immunizations Immunizations are current?: No - POLST Patient has POLST: No POLST Status: Full Code PD ED PE EXPANDED - General General: Alert - HEENT HEENT: Dry mucous membranes - Cardiac Cardiac: Regular Rate, Murmur Present - Respiratory Respiratory: Clear to ausultation lencho. No: Distress, Labored - Abdomen Abdomen: Normal Bowel sounds, Tender to palpation (Generally tender to palpation, But none focal. Nonperitoneal). No: Rebound, Guarding - Derm Derm: Normal color, Warm and dry - Neuro Neuro: Alert and Oriented X 3, CNII-XII intact - GCS Eye Opening: Spontaneous Motor: Obeys Commands Verbal: Oriented Total: 15 Results - Vitals Vitals: Vital Signs - 24 hr 03/12/22 03/12/22 03/12/22 17:44 17:47 19:47 Temperature 35.6 C L 35.7 C L Heart Rate 95 95 81 Respiratory 14 14 19 Rate Blood Pressure 116/51 L 116/51 L 92/67 O2 Saturation 99 99 100 03/12/22 21:00 Temperature Heart Rate 85 Respiratory 20 Rate Blood Pressure 99/70 O2 Saturation 100 Oxygen O2 Source Room air - Labs Labs: Laboratory Tests 03/12/22 03/12/22 03/12/22 17:56 17:56 17:56 WBC 4.9 RBC 3.97 L Hgb 10.9 L Hct 32.1 L MCV 80.9 L MCH 27.5 MCHC 34.0 RDW 19.8 H Plt Count 224 MPV 8.4 Neut # (Auto) 3.2 Lymph # (Auto) 1.4 L [place] # (Auto) 0.3 Eos # (Auto) 0.0 Baso # (Auto) 0.0 Absolute Nucleated RBC 0.00 Nucleated RBC % 0.0 Sodium 131 L Potassium 3.7 Chloride 97 L Carbon Dioxide 20 L Anion Gap 14.0 H BUN 7 Creatinine 0.8 Estimated GFR (MDRD) 70 L Glucose 96 Calcium 8.3 L Total Bilirubin 1.6 H AST 13 ALT < 10 L Alkaline Phosphatase 67 B-Natriuretic Peptide 412 H Total Protein 5.5 L Albumin 2.3 L Globulin 3.2 Albumin/Globulin Ratio 0.7 L Lipase 27 Urine Color Urine Clarity Urine pH Ur Specific [place] Urine Protein Urine Glucose (UA) Urine Ketones Urine Occult Blood Urine Nitrite Urine Bilirubin Urine Urobilinogen Ur Leukocyte Esterase Urine RBC Urine WBC Ur Squamous Epith Cells Urine Bacteria Ur Microscopic Review Urine Culture Comments SARS-CoV-2 (PCR) 03/12/22 03/12/22 18:15 19:44 WBC RBC Hgb Hct MCV MCH MCHC RDW Plt Count MPV Neut # (Auto) Lymph # (Auto) [place] # (Auto) Eos # (Auto) Baso # (Auto) Absolute Nucleated RBC Nucleated RBC % Sodium Potassium Chloride Carbon Dioxide Anion Gap BUN Creatinine Estimated GFR (MDRD) Glucose Calcium Total Bilirubin AST ALT Alkaline Phosphatase B-Natriuretic Peptide Total Protein Albumin Globulin Albumin/Globulin Ratio Lipase Urine Color YELLOW Urine Clarity HAZY Urine pH 6.0 Ur Specific [place] 1.010 Urine Protein NEGATIVE Urine Glucose (UA) NEGATIVE Urine Ketones 40 H Urine Occult Blood TRACE-INTA Urine Nitrite NEGATIVE Urine Bilirubin NEGATIVE Urine Urobilinogen >=8.0 H Ur Leukocyte Esterase SMALL H Urine RBC 0-5 Urine WBC 6-10 H Ur Squamous Epith Cells MOD Squamous H Urine Bacteria Few Ur Microscopic Review INDICATED Urine Culture Comments NOT INDICATED SARS-CoV-2 (PCR) NOT DETECTED - Rads (name of study) CT abdomen Radiology: Final report received (Large gallstone impacted in the neck of the gallbladder with biliary air consistent with emphysematous cholecystitis. The impacted stone compresses upon the second portion of the duodenum causing part ial obstruction) PD MEDICAL DECISION MAKING - ED course Complexity details: re-evaluated patient, considered differential, d/w patient, d/w strategic sourcing consultant (Wilson) ED course: 76-year-old female return to the emergency department for evaluation of uncontrolled vomiting for about 3 weeks. She also has some generalized abdominal pain though nonfocal. She was briefly admitted to this hospital on the and for similar. No CT imaging was done at that time and she was discharged home. She states that over the last week she is kept none of her food or liquids down. I am on presentation she is alert oriented. She is actively dry heaving. She has generalized nonperitoneal belly pain. She has no fever. Screening labs showed no leukocytosis or significant electrolyte derangement. However a CT of the abdomen does show a large gallstone impacting the neck of the gallbladder. There is also some biliary air concerning for emphysematous cholecystitis. The large size of the stone is also causing some obstruction of the second portion of the duodenum. I briefly discussed this case with our on-call surgeon Dr. Joe. Unfortunately given the patient's history of atrial fibrillation and heart failure which includes an EF of 25 to 30% and moderate aortic stenosis the patient is not a candidate for surgical treatment tonight here in the emergency department. In addition to that we have no surgery on-call over the weekend. Therefore we will need to try and transfer the patient to an outlying hospital that has appropriate surgical services. Patient was started on Cipro and Flagyl as antibiotic prophylaxis. 2200: Per the ED Cigarette Machine Operator, the patient has been waitlisted at multiple hospitals. We continue to reach out to outlying facilities that may be able to accept the patient in transfer. She does have soft blood pressures in the 90s over 60s but no tachycardia. She has been signed out to my nighttime colleague Dr. Mcdowell to follow-up on any over night events Departure - Departure Disposition: 02 Transfer Acute Care Hosp Clinical Impression: Acute cholecystitis
[2022-03-12 18:15] LABS: ALBUMIN 2.3 g/dL (3.2-5.5); ALBUMIN/GLOBULIN RATIO 0.7 (1.0-2.2); ALKALINE PHOSPHATASE 67 IU/L (42-121); ALT ALANINE AMINOTRANSFERASE < 10 IU/L (10-60); AST ASPARTATE AMINOTRANSFERASE 13 IU/L (10-42); BILIRUBIN,TOTAL 1.6 mg/dL (0.2-1.0); BUN - BLOOD UREA NITROGEN 7 mg/dL (6-20); CALCIUM 8.3 mg/dL (8.5-10.3); CARBON DIOXIDE - CO2 20 mmol/L (21-32); CHLORIDE 97 mmol/L (101-111); CREATININE 0.8 mg/dL (0.4-1.0); GFR - MDRD 70 (>89); GLUCOSE 96 mg/dL (70-100); LIPASE 27 U/L (22-51); POTASSIUM 3.7 mmol/L (3.5-5.0); SODIUM 131 mmol/L (135-145); TOTAL PROTEIN 5.5 g/dL (6.7-8.2)
[2022-03-12 18:22] LABS: GLUCOSE, URINE (UA) NEGATIVE (NEGATIVE); KETONES,URINE (UA) 40 mg/dL (NEGATIVE); LEUKOCYTE ESTERASE, URINE SMALL (NEGATIVE); NITRITE,URINE NEGATIVE (NEGATIVE); OCCULT BLOOD,URINE TRACE-INTA (NEGATIVE); PROTEIN,URINE NEGATIVE (NEGATIVE); UROBILINOGEN,URINE >=8.0 E.U./dL (NORMAL)
[2022-03-12 18:27] LABS: BILIRUBIN,URINE NEGATIVE (NEGATIVE); CLARITY,URINE HAZY (CLEAR); ICTOTEST,URINE NEGATIVE
[2022-03-12 18:39] LABS: BACTERIA,URINE Few /HPF (None Seen); RBC,URINE 0-5 /HPF (0-5); SQUAMOUS EPITHELIAL CELL,UR MOD Squamous (<= Few)
--- NOTE | 2022-03-12 19:00 | CT Report ---
PROCEDURE: Abdomen/Pelvis WO INDICATIONS: n/v 2 weeks TECHNIQUE: After the administration of contrast, 5 mm thick sections acquired from the diaphragms to the sym physis. 5 mm thick coronal and sagittal reformats were acquired. For radiation dose reduction, the following was used: automated exposure control, adjustment of mA and/or kV according to patient size . COMPARISON: None. FINDINGS: Image quality: Excellent. ABDOMEN: Lung bases: Lung bases are clear. Heart size is normal. Solid organs: Liver: The liver has no mass or intrahepatic biliary ductal dilatation. Biliary: The gallbladder has a large stone measuring 4.3 cm in diameter. The gallbladder has wall thi ckening and there is air within the gallbladder lumen and within the intrahepatic and extrahepatic bi le duct consistent with emphysematous cholecystitis. The impacted stone compresses upon the second po rtion of the duodenum causing partial obstruction. Pancreas: The pancreas has no mass or ductal dilatation. No surrounding inflammation. Spleen: Normal size. No mass. Adrenal glands: No hypertrophy or nodules. Kidneys: No obstructive calculus or hydronephrosis. No solid mass. No cystic mass. Bowel: The distal esophagus and stomach are normal. The stomach is distended with fluid. The gallsto ne is impacted in the neck of the gallbladder. The small bowel has a normal caliber. The large bowel has a particular cyst without evidence of diverticulitis. Free air/free fluid: No free air or free fluid. Abdominal wall: There is a fat-containing periumbilical hernia and a fat-containing ventral hernia in the inferior abdomen. A radiodensity is seen within the ventral hernia of uncertain certain etiology . Retroperitoneum: No retroperitoneal or mesenteric adenopathy by size criteria. The aorta has atheros clerotic calcifications with no aneurysmal dilatation. Lymph nodes: No adenopathy. Bones: There are multilevel degenerative changes. No vertebral body compression fractures. PELVIS: Genitourinary: Bladder wall thickness is normal. Miscellaneous: No inguinal hernias or adenopathy. IMPRESSION: Large gallstone impacted in the neck of the gallbladder with biliary air consistent with emphysematous cholecystitis. The impacted stone compresses upon the second portion of the duodenum c ausing partial obstruction. Reviewed by: Eric Harp on 03/12/2022 6:59 PM PDT Approved by: Eric Harp on 03/12/2022 6:59 PM PDT Station ID: [id number]
[2022-03-12] MEDS ORDERED: PROCHLORPERAZINE 10 MG/2 ML VIAL IVP STA (19:22)
[2022-03-12] MEDS ORDERED: metroNIDAZOLE 500 MG/100 ML 500 MG/100 ML BAG IV ONE (19:33)
[2022-03-12] MEDS ORDERED: CIPROFLOXACIN 400 MG/200 ML 400 MG/200 ML BAG IV STA (19:33)
[2022-03-12 22:02] LABS: DIGOXIN 0.3 ng/mL
[2022-03-13] MEDS ORDERED: metroNIDAZOLE 500 MG/100 ML 500 MG/100 ML BAG IV SCH ×2 (01:00→04:00)
[2022-03-13] MEDS ORDERED: PROCHLORPERAZINE 10 MG/2 ML VIAL IVP STA (01:16)
[2022-03-13 06:59] VITALS: BP 102/45
[2022-03-13] MEDS ORDERED: CIPROFLOXACIN 400 MG/200 ML 400 MG/200 ML BAG IV SCH (09:00)
== END 2022-03-13 07:35 | disposition short-term general hospital (02) ==
LOC: ED 17:39
DX: K81.0 Acute cholecystitis (principal); Z20.822 Contact with and (suspected) exposure to COVID-19
CPT/HCPCS: 36415; 80053; 80162; 81001; 81003; 83690; 83880; 85025; 87086; 96361; 96365; 96367; 96368; 96375; 96376; 99281

== ENCOUNTER 2022-03-13 07:37 | Outpatient (CLI) | payer MEDICARE, MEDICAID | END 2022-03-13 07:38 | disposition short-term general hospital (02) | LOC: EMS 07:37 | PROVIDERS: ATTEND Registered Nurse | DX: K80.00 Calculus of gallbladder with acute cholecystitis without obstruction (principal) | CPT/HCPCS: A0425; A0426 ==